=== PATIENT | female | born 1940 | race Caucasian/White ===

== ENCOUNTER 2018-02-06 19:46 | Emergency (ER) | payer MEDICARE ==
[2018-02-06 20:08] VITALS: BP 166/88
[2018-02-06] MEDS ORDERED: Acetaminophen TAB* 325 MG PO ONE (20:30)
--- NOTE | 2018-02-06 20:46 | UC ---
Isabel Duque Jacob, scribed for Renetta Ruiz MD on 02/06/18 at 2035 . General HPI - HPI Summary HPI Summary: Pt is a 77 y/o F w/ c/o pain and swelling on the right side of her face. Patient states she noticed first thing this morning when she was eating breakfast some pain with chewing. Patient states at work she develops right shoulder pain that she attributes to how she was sitting. Patient took some Motrin with improvement. Patient states this evening she noted some rapidly progressing swelling of her right face. Patient states she has pain from her inferior aspect of her right ear radiating under her neck and across her lower jaw. Patient denies fevers or chills. She denies dental and gum pain (Pt has dentures). Patient denies intraoral swelling or pain. She denies difficulty swallowing at the moment, but chewing food is still painful. Pt took 400 mg ibuprofen at around 2 pm today, which provided temporary relief. Pt with a remote history of infected parotid gland. Patient's medications reviewed this visit. - History of Current Complaint Chief Complaint: AWAkin Stated Complaint: JAW PAIN,SWELLING Time Seen by Provider: 02/06/18 20:05 Hx Obtained From: Patient Onset/Duration: Lasting Hours - onset in the morning Current Severity: Mild Pain Intensity: 2 Pain Location at: right facial area Pain Radiates to: right jawline, right neck, right shoulder Aggravating: chewing Alleviating: ibuprofen provided temporary relief Associated Signs & Symptoms: Positive: Edema - right-sided facial area, Other - POSITIVE: difficulty chewing food NEGATIVE: difficulty swallowing, dental and gum pain - Allergy/Home Medications Allergies/Adverse Reactions: Allergies Allergy/AdvReac Type Severity Reaction Status Date / Time acetazolamide Allergy Unknown Verified 02/06/18 20:11 Reaction Details celecoxib [From Celebrex] Allergy GI Upset Verified 02/06/18 20:12 Penicillins Allergy Unknown Verified 02/06/18 20:11 Reaction Details acetaminophen [From Percocet] AdvReac Nausea And Verified 02/06/18 20:12 Vomiting nitrofurantoin AdvReac GI Upset Verified 02/06/18 20:12 [From Macrodantin] oxycodone [From Percocet] AdvReac Nausea And Verified 02/06/18 20:12 Vomiting Home Medications: Home Medications Fluticasone NASAL SPRAY 50MCG* [Flonase NASAL SPRAY 50MCG*] 1 spray BOTH NARES DAILY 02/06/18 [History Confirmed 02/06/18] Ibuprofen TAB* [Motrin TAB* 400 MG] 400 mg PO Q6H PRN 02/06/18 [History Confirmed 02/06/18] Levothyroxine TAB* [Synthroid TAB*] 112 mcg PO DAILY 02/06/18 [History Confirmed 02/06/18] Omeprazole CAP* [Prilosec CAP* 20 MG] 20 mg PO EVERY OTHER DAY 02/06/18 [ History Confirmed 02/06/18] PMH/Surg Hx/FS Hx/Imm Hx Previously Healthy: Yes Respiratory History: Bronchitis Other GI/ History: UTI - Surgical History Surgical History: Yes Surgery Procedure, Year, and Place: hysterectomy - 1973. appendectomy - 1998. BLADDER suspension surgery - 2007. R carpal tunnel - Family History Known Family History: Positive: None - Social History Occupation: Employed Full-time Lives: With Family Alcohol Use: None Substance Use Type: None Smoking Status (MU): Never Smoked Tobacco Have You Smoked in the Last Year: No Review of Systems Constitutional: Negative Skin: Other - right facial swelling All Other Systems Reviewed And Are Negative: Yes Physical Exam - Summary Physical Exam Summary: Vital Signs Reviewed: Yes A+Ox3, no distress Eyes: Conjunctiva Clear, MATTHEW. EOM intact and full ENT: Hearing grossly normal TM x 2 clear, no mastoid pain. Pt with edema right inferior lateral aspect of zygomatic arch extending t right angle of jaw. No fluctuance, no warmth. Pt without tenderness of mastoid,but report pain inferior aspect of ear. Pt also with fullness of submental area. No fluctuance. No TMJ pain. no intraoral fullness of the base of mouth or buccal membrae. Mmmoist, uvula midline, no exudate, no erythema Neck: Supple Respiratory: Positive: No respiratory distress, No accessory muscle use + CTA throughout no w/r Cardiovascular: RRR nl s1, s2 no m/r CBT <2 sec abd soft + BS nt/nd no guarding, no distension Musculoskeletal Exam: GUSTAFSON x 4 without difficulty Strength Intact, ROM Intact Neurological: Positive: Alert, + sensation throughout Psychological: Positive: Normal Response To Family Skin: Positive: no rash, no ecchymosis Triage Information Reviewed: Yes Vital Signs: Initial Vital Signs Temp 99.1 F 02/06/18 20:01 Pulse 82 02/06/18 20:01 Resp 18 02/06/18 20:01 BP 166/88 02/06/18 20:01 Pulse Ox 97 02/06/18 20:01 Course/Dx - Course Course Of Treatment: Patient with development of right facial swelling and discomfort since this morning. On exam patient with fullness on the right side of her face extending to her right submental area and towards her right ear. Most likely differential is parotic gland inflammation or obstruction. Given the rapid progression and discomfort patient is an recommendation to the emergency room for further evaluation and treatment. Will give patient Tylenol here and she has some discomfort following exam. Spoke to JOEL Demarco in the emergency department, where patient coming by private car. Patient's and will drive her. Patient comfortable and full in full agreement with plan. Patient recommendation the ED. - Differential Dx - Multi-Symptom Provider Diagnoses: right sided facial swelling Discharge - Sign-Out/Discharge Documenting (check all that apply): Discharge/Admit/Transfer - Discharge Plan Condition: Stable Disposition: HOME Referrals: Livier Duffy MD [Primary Care Provider] - Additional Instructions: The doctor that evaluated you today thinks your symptoms are likely related to swelling of your parotid duct. However, because your sx have progressed so quickly it is recommended you go to the emergency department for further evaluation. This may include CT imaging and lab work, but will at the discretion of the provider who evaluates you in the emergency department - Billing Disposition and Condition Condition: STABLE Disposition: Home The documentation as recorded by the Isabel cristina Jacob accurately reflects the service I personally performed and the decisions made by , Renetta Ruiz MD.
== END 2018-02-06 20:35 | disposition home or self-care (01) ==
LOC: UCEAST 19:46
DX: R22.0 Localized swelling, mass and lump, head (principal); R51 Headache; Z88.8 Allergy status to other drugs, medicaments and biological substances; Z88.6 Allergy status to analgesic agent; Z88.0 Allergy status to penicillin; Z88.1 Allergy status to other antibiotic agents; Z88.5 Allergy status to narcotic agent
CPT/HCPCS: 99212; A9270-GY; G0463

== ENCOUNTER 2018-02-06 21:05 | Emergency (ER) | payer MEDICARE ==
[2018-02-06 22:25] LABS: ABS Basophils 0.1 10^3/ul (0-0.2); ABS Eosinophils 0.3 10^3/ul (0-0.6); ABS Lymphocytes 1.8 10^3/ul (1.0-4.8); ABS Monocytes 0.6 10^3/ul (0-0.8); ABS Neutrophils 6.2 10^3/ul (1.5-7.7); ABS Nucleated RBC 0 10^3/ul; Eosinophil % 3.6 % (0-6); Hematocrit 39 % (35-47); Lymphocyte % 20.5 % (25-47); Mean Corpuscular HGB Conc 34 g/dl (31-36); Mean Corpuscular Hemoglobin 31 pg (27-31); Mean Corpuscular Volume 93 fL (80-97); Mean Platelet Volume 7.8 um3 (7.4-10.4); Nucleated Red Blood Cells % 0; Platelet Count 250 10^3/ul (150-450); Red Blood Count 4.18 10^6/ul (4.00-5.40); Red Cell Distribution Width 14 % (10.5-15)
--- NOTE | 2018-02-06 22:33 | ED ---
Throat Pain/Nasal Congestion - HPI Summary HPI Summary: Complains of DOUGLAS, right-sided facial swelling, right-sided neck pain, pain with movement of jaw, pain behind and below right ear, right shoulder pain starting this a.m. denies fever, CP, SOB, ear pain, N/V/D, abdomen pain, change in urinary BM. Medical history is hypothyroid, asthma. - History of Current Complaint Chief Complaint: EDGeneral Time Seen by Provider: 02/06/18 21:51 Hx Obtained From: Patient Onset/Duration: Gradual Onset Severity: Moderate Associated Signs And Symptoms: Positive: Negative Cough: None - Allergies/Home Medications Allergies/Adverse Reactions: Allergies Allergy/AdvReac Type Severity Reaction Status Date / Time acetazolamide Allergy Unknown Verified 02/06/18 21:13 Reaction Details celecoxib [From Celebrex] Allergy GI Upset Verified 02/06/18 21:13 Penicillins Allergy Unknown Verified 02/06/18 21:13 Reaction Details nitrofurantoin AdvReac GI Upset Verified 02/06/18 21:13 [From Macrodantin] oxycodone [From Percocet] AdvReac Nausea And Verified 02/06/18 21:13 Vomiting Home Medications: Home Medications Levothyroxine TAB* [Synthroid TAB*] 100 mcg PO QAM 02/06/18 [History Confirmed 02/06/18] PMH/Surg Hx/FS Hx/Imm Hx Endocrine/Hematology History: Reports: Hx Diabetes, Hx Thyroid Disease Cardiovascular History: Reports: Hx Hypertension Respiratory History: Reports: Hx Asthma Denies: Hx Chronic Obstructive Pulmonary Disease (COPD) GI History: Reports: Hx Gastroesophageal Reflux Disease, Hx Irritable Bowel - MANY YEARS AGO Denies: Hx Ulcer Musculoskeletal History: Reports: Hx Arthritis Sensory History: Reports: Hx Cataracts, Hx Contacts or Glasses Denies: Hx Hearing Aid Opthamlomology History: Reports: Hx Cataracts, Hx Contacts or Glasses Neurological History: Reports: Hx Migraine - IN THE PAST - Cancer History Cancer Type, Location and Year: SKIN CA - Surgical History Surgery Procedure, Year, and Place: hysterectomy - 1973. appendectomy - 1998. BLADDER suspension surgery - 2007. R carpal tunnel Hx Anesthesia Reactions: No Infectious Disease History: No Infectious Disease History: Reports: Hx Shingles Denies: Hx Hepatitis, Hx Human Immunodeficiency Virus (HIV), Traveled Outside the [place] in Last 30 Days - Family History Known Family History: Positive: None - Social History Alcohol Use: None Substance Use Type: Reports: None Smoking Status (MU): Never Smoked Tobacco Have You Smoked in the Last Year: No Review of Systems Constitutional: Negative Eyes: Negative ENT: Negative Cardiovascular: Negative Respiratory: Negative Gastrointestinal: Negative Genitourinary: Negative Musculoskeletal: Negative Skin: Negative Neurological: Negative Psychological: Normal All Other Systems Reviewed And Are Negative: Yes Physical Exam - Summary Physical Exam Summary: Right side facial swelling posterior and inferior to TMJ. Tenderness behind right side ear, with no apparent redness to mastoid. Right ear exam normal. Oropharynx exam normal. Full range of motion of jaw with pain. Triage Information Reviewed: Yes Vital Signs On Initial Exam: Initial Vitals Temp Pulse Resp BP Pulse Ox 98.7 F 84 18 197/88 97 02/06/18 21:05 02/06/18 21:05 02/06/18 21:05 02/06/18 21:05 02/06/18 21:05 Vital Signs Reviewed: Yes Appearance: Positive: Well-Appearing Skin: Positive: Warm Head/Face: Positive: Normal Head/Face Inspection ENT: Positive: Normal ENT inspection Neck: Positive: Supple, Tenderness @ Respiratory/Lung Sounds: Positive: Clear to Auscultation Cardiovascular: Positive: Normal Abdomen Description: Positive: Nontender Musculoskeletal: Positive: Normal Neurological: Positive: Normal Psychiatric: Positive: Normal AVPU Assessment: Alert - Henrry Coma Scale Best Eye Response: 4 - Spontaneous Best Motor Response: 6 - Obeys Commands Best Verbal Response: 5 - Oriented Coma Scale Total: 15 Diagnostics - Vital Signs Vital Signs Temp Pulse Resp BP Pulse Ox 02/06/18 22:01 161/81 02/06/18 21:05 98.7 F 84 18 197/88 97 - Laboratory Lab Results: Lab Results 02/06/18 Range/Units 22:12 WBC 9.0 (3.5-10.8) 10^3/ul RBC 4.18 (4.00-5.40) 10^6/ul Hgb 13.0 (12.0-16.0) g/dl Hct 39 (35-47) % MCV 93 (80-97) fL MCH 31 (27-31) pg MCHC 34 (31-36) g/dl RDW 14 (10.5-15) % Plt Count 250 (150-450) 10^3/ul MPV 7.8 (7.4-10.4) um3 Neut % (Auto) 68.5 (38-83) % Lymph % (Auto) 20.5 L (25-47) % Clinch % (Auto) 6.7 (0-7) % Eos % (Auto) 3.6 (0-6) % Baso % (Auto) 0.7 (0-2) % Absolute Neuts (auto) 6.2 (1.5-7.7) 10^3/ul Absolute Lymphs (auto) 1.8 (1.0-4.8) 10^3/ul Absolute Monos (auto) 0.6 (0-0.8) 10^3/ul Absolute Eos (auto) 0.3 (0-0.6) 10^3/ul Absolute Basos (auto) 0.1 (0-0.2) 10^3/ul Absolute Nucleated RBC 0 10^3/ul Nucleated RBC % 0 Result Diagrams: 02/06/18 22:12 02/06/18 22:12 Lab Statement: Any lab studies that have been ordered have been reviewed, and results considered in the medical decision making process. EENT Course/Dx - Course Course Of Treatment: Complains of DOUGLAS, right-sided facial swelling, right-sided neck pain, pain with movement of jaw, pain behind and below right ear, right shoulder pain starting this a.m. denies fever, CP, SOB, ear pain, N/V/D, abdomen pain, change in urinary BM. Medical history is hypothyroid, asthma. Vital signs within normal limits. Labs unremarkable. CT positive only for right-sided parotid inflammation. Rx for clindamycin 300 mg 3 times a day by mouth 7 days. Follow-up with primary care. Right side facial swelling posterior and inferior to TMJ. Tenderness behind right side ear, with no apparent redness to mastoid. Right ear exam normal. Oropharynx exam normal. Full range of motion of jaw with pain. - Diagnoses Provider Diagnoses: Parotitis, acute Discharge - Sign-Out/Discharge Documenting (check all that apply): Discharge/Admit/Transfer - Discharge Plan Condition: Stable Disposition: HOME Prescriptions: Clindamycin Cap(NF) [Clindamycin Cap 300 mg Cap(NF)] 300 mg PO TID 7 Days #21 cap Patient Education Materials: Neck Pain (ED) Referrals: Livier Duffy MD [Primary Care Provider] - Additional Instructions: Take antibiotics as directed. Follow-up with primary care. Return to the ED for any new or worsening symptoms - Billing Disposition and Condition Condition: STABLE Disposition: Home
[2018-02-06 22:43] LABS: EGFR Non-African American 91.4 (>60)
[2018-02-06] MEDS ORDERED: Iodixanol* (CONTRAST) 320 MG/ML 100 ML SDV IV ONE (23:10)
[2018-02-07] MEDS ORDERED: Clindamycin CAP* 150 MG PO ONE (01:32)
[2018-02-07 01:40] VITALS: BP 144/73
--- NOTE | 2018-02-07 06:57 | RAD ---
INDICATION: Facial swelling COMPARISON: None TECHNIQUE: Axial source images were acquired following the intravenous administration of 50 mL Omnipaque 300 Coronal and sagittal reconstructed images were acquired. FINDINGS: Brain and skull base: There are no CT abnormalities of the visualized brain or skull base. The mastoid air cells are well aerated. Salivary glands: There is mild prominence of the right parotid gland and there is mild infiltration of the adjacent fat suggesting inflammatory response. There is no evidence of a mass or sialolithiasis. The major salivary glands otherwise appear normal. Paranasal sinuses: There is an air-fluid level in the sphenoid sinus The paranasal sinuses are otherwise clear. Nasopharynx: The nasopharynx and nasal cavity appear normal. Oropharynx: The oral, and oropharynx appear normal. Larynx: There are no laryngeal abnormalities. Thyroid: The thyroid appears normal. Lymph nodes: There is no lymphadenopathy by size criteria. Trachea/esophagus: There are no abnormalities of the trachea or visualized esophagus. The visualized lung apices are clear.. Vessels:The vessels appear normal. Bones and soft tissues:The remaining soft tissue elements of the neck are normal. There are no acute bony findings. Other: None IMPRESSION: INFLAMMATORY CHANGES ADJACENT TO THE RIGHT PAROTID GLAND. SPHENOID SINUSITIS
== END 2018-02-07 01:48 | disposition home or self-care (01) ==
LOC: ED 21:05
DX: K11.21 Acute sialoadenitis (principal); E03.9 Hypothyroidism, unspecified; Z86.2 Personal history of diseases of the blood and blood-forming organs and certain disorders involving the immune mechanism; Z79.899 Other long term (current) drug therapy; Z88.0 Allergy status to penicillin; Z88.8 Allergy status to other drugs, medicaments and biological substances; Z88.5 Allergy status to narcotic agent
CPT/HCPCS: 36415; 70491; 80053; 83605; 85025; 86140; 99283; A9270-GY; Q9967

== ENCOUNTER 2018-02-08 16:45 | Emergency (ER) | payer MEDICARE ==
[2018-02-08] MEDS ORDERED: metroNIDAZOLE IV 500 MG/100ML* 500 MG/100 ML BAG IVPB ONE (17:52)
[2018-02-08] MEDS ORDERED: Vancomycin(*) 1,500 MG in NS 0.9% 250 ML* 250 ML IVPB ONE (17:52)
[2018-02-08 18:14] LABS: ABS Basophils 0.1 10^3/ul (0-0.2); ABS Eosinophils 0.2 10^3/ul (0-0.6); ABS Lymphocytes 1.2 10^3/ul (1.0-4.8); ABS Monocytes 0.7 10^3/ul (0-0.8); ABS Neutrophils 7.1 10^3/ul (1.5-7.7); ABS Nucleated RBC 0 10^3/ul; Eosinophil % 2.3 % (0-6); Hematocrit 40 % (35-47); Hemoglobin 13.1 g/dl (12.0-16.0); Lymphocyte % 12.6 % (25-47); Mean Corpuscular HGB Conc 33 g/dl (31-36); Mean Corpuscular Hemoglobin 31 pg (27-31); Mean Corpuscular Volume 94 fL (80-97); Mean Platelet Volume 8.3 um3 (7.4-10.4); Nucleated Red Blood Cells % 0.1; Platelet Count 263 10^3/ul (150-450); Red Blood Count 4.22 10^6/ul (4.00-5.40); Red Cell Distribution Width 14 % (10.5-15); White Blood Count 9.2 10^3/ul (3.5-10.8)
[2018-02-08 18:30] LABS: EGFR Non-African American 88.2 (>60); INR 0.91 (0.77-1.02)
--- NOTE | 2018-02-08 19:06 | ED ---
Osmel Duque Tariq, scribed for John Townsend MD on 02/08/18 at 1759 . Allergic Reaction/Systemic - HPI Summary HPI Summary: A 77 y/o female presents to ED c/o swelling on right check. Additionally, right- side of her face hurts. According to pt, on Monday (2 days ago) she was diagnosed with acute bronchitis and was prescribed Clindamycin. Yesterday, she saw no change, however today she woke up with a swollen right cheek. Additionally, a [place] of redness was present on her chest. The redness on her chest has been spreading, moving lower towards belly button. Originally, this all started with her jaw hurting and her right side of face being swollen when she went to . Pt denies any urinary issues. She also denies any teeth issues ( dentures), and nothing in her mouth hurts. Pt also denies fever and sweats, however she has chills. Allergic to Penicillin. - History of Current Complaint Chief Complaint: EDGeneral Time Seen by Provider: 02/08/18 17:40 Hx Obtained From: Patient Onset/Duration: Sudden Onset, Started days ago - 1 day ago Timing: Constant Severity Initially: Mild Severity Currently: Mild Pain Intensity: 3 Pain Scale Used: 0-10 Numeric Character: Swelling, Pain Aggravating Factor(s): Nothing Alleviating Factor(s): Nothing Associated Signs And Symptoms: Positive: Negative - Allergies/Home Medications Allergies/Adverse Reactions: Allergies Allergy/AdvReac Type Severity Reaction Status Date / Time acetazolamide Allergy Unknown Verified 02/08/18 16:57 Reaction Details celecoxib [From Celebrex] Allergy GI Upset Verified 02/08/18 16:57 Penicillins Allergy Unknown Verified 02/08/18 16:57 Reaction Details nitrofurantoin AdvReac GI Upset Verified 02/08/18 16:57 [From Macrodantin] oxycodone [From Percocet] AdvReac Nausea And Verified 02/08/18 16:57 Vomiting PMH/Surg Hx/FS Hx/Imm Hx Endocrine/Hematology History: Reports: Hx Diabetes, Hx Thyroid Disease Cardiovascular History: Reports: Hx Hypertension Respiratory History: Reports: Hx Asthma Denies: Hx Chronic Obstructive Pulmonary Disease (COPD) GI History: Reports: Hx Gastroesophageal Reflux Disease, Hx Irritable Bowel - MANY YEARS AGO Denies: Hx Ulcer History: Denies: Hx Renal Disease Musculoskeletal History: Reports: Hx Arthritis Sensory History: Reports: Hx Cataracts, Hx Contacts or Glasses Denies: Hx Hearing Aid Opthamlomology History: Reports: Hx Cataracts, Hx Contacts or Glasses Neurological History: Reports: Hx Migraine - IN THE PAST - Cancer History Cancer Type, Location and Year: SKIN CA - Surgical History Surgery Procedure, Year, and Place: hysterectomy - 1973. appendectomy - 1998. BLADDER suspension surgery - 2007. R carpal tunnel Hx Anesthesia Reactions: No Infectious Disease History: No Infectious Disease History: Reports: Hx Shingles Denies: Hx Hepatitis, Hx Human Immunodeficiency Virus (HIV), Traveled Outside the [place] in Last 30 Days - Family History Known Family History: Positive: Hypertension, Other - Heart issues, breast cancer, melanoma - Social History Alcohol Use: None Substance Use Type: Reports: None Smoking Status (MU): Never Smoked Tobacco Have You Smoked in the Last Year: No Review of Systems Positive: Chills. Negative: Fever Negative: Erythema Negative: Sore Throat Negative: Chest Pain Negative: Shortness Of Breath, Cough Negative: Abdominal Pain, Vomiting, Nausea Negative: dysuria, hematuria Negative: Myalgia, Edema Positive: Other - POSITIVE: Swelling and redness on right cheek, redness on chest.. Negative: Rash Neurological: Other - NEGATIVE: Dizziness All Other Systems Reviewed And Are Negative: Yes Physical Exam - Summary Physical Exam Summary: Constitutional: Well-developed, Well-nourished, Alert. (-) Distressed Skin: Warm, Dry. Has erythema from angle of her jaw down her middle anterior neck within duration. HENT: Normocephalic; Atraumatic. Oral intro is normal. Eyes: Conjunctiva normal Neck: Musculoskeletal ROM normal neck. (-) JVD, (-) Stridor, (-) Tracheal deviation Cardio: Rhythm regular, rate normal, Heart sounds normal; Intact distal pulses; The pedal pulses are 2+ and symmetric. Radial pulses are 2+ and symmetric. (-) Murmur Pulmonary/Chest wall: Effort normal. (-) Respiratory distress, (-) Wheezes, (-) Rales Abd: Soft, (-), epigastric tenderness, (-) Distension, (-) Guarding, (-) Rebound Musculoskeletal: Mild Trismus. Lymph: (-) Cervical adenopathy Neuro: Alert, Oriented x3 Psych: Mood and affect Normal Triage Information Reviewed: Yes Vital Signs On Initial Exam: Initial Vitals Temp Pulse Resp BP Pulse Ox 98.8 F 90 18 179/78 98 02/08/18 16:50 02/08/18 16:50 02/08/18 16:50 02/08/18 16:50 02/08/18 16:50 Vital Signs Reviewed: Yes Diagnostics - Vital Signs Vital Signs Temp Pulse Resp BP Pulse Ox 02/08/18 16:50 98.8 F 90 18 179/78 98 - Laboratory Result Diagrams: 02/08/18 18:01 02/08/18 18:01 Lab Statement: Any lab studies that have been ordered have been reviewed, and results considered in the medical decision making process. Allergic Reaction Course/Dx - Diagnoses Provider Diagnoses: Suppurative parotitis - Provider Notifications Discussed Care Of Patient With: Lorraine Valente Instructed by Provider To: Other - Accepts patient to [facility]. - Critical Care Time Critical Care Time: 30-74 min - 35 minutes Discharge - Sign-Out/Discharge Documenting (check all that apply): Discharge/Admit/Transfer - TRANSFER - Discharge Plan Condition: Stable Disposition: TRANS HIGHER LVL OF CARE FAC Referrals: Livier Duffy MD [Primary Care Provider] - Additional Instructions: RETURN TO THE EMERGENCY DEPARTMENT FOR CHANGING OR WORSENING SYMPTOMS The documentation as recorded by the Osmel cristina Tariq accurately reflects the service I personally performed and the decisions made by , John Townsend MD.
[2018-02-08] MEDS ORDERED: diPHENhydraMINE IV* 50 MG/ML 1 ml VIAL (BENADRYL) IV ONE (19:46)
[2018-02-08] MEDS ORDERED: diPHENhydraMINE IV* 50 MG/ML 1 ml VIAL (BENADRYL) ONE (19:47)
[2018-02-08 20:51] VITALS: BP 169/80
== END 2018-02-08 20:49 | disposition short-term general hospital (02) ==
LOC: ED 16:45
DX: K11.20 Sialoadenitis, unspecified (principal); E11.9 Type 2 diabetes mellitus without complications; I10 Essential (primary) hypertension; J45.909 Unspecified asthma, uncomplicated; E07.9 Disorder of thyroid, unspecified; C80.1 Malignant (primary) neoplasm, unspecified; C79.2 Secondary malignant neoplasm of skin; Z88.0 Allergy status to penicillin
CPT/HCPCS: 36415; 80053; 82150; 83605; 84484; 85025; 85610; 85652; 85730; 87040; 96374; 96375; 99284; J1200; J3370; J3490

== ENCOUNTER 2018-12-18 13:55 | Observation (INO) | payer MEDICARE ==
--- NOTE | 2018-12-18 14:18 | ED ---
Neurological HPI - HPI Summary HPI Summary: Patient is a 78 y/o F presenting to ED via EMS with complaints of left sided facial and arm numbness along with visual changes. Sx onset at around 1215 today , patient states that numbness at the left side of her face/mouth onset first and then spread to her left arm. Ten minutes after her Sx of numbness onset, she began to experience visual changes. She states that she lost her peripheral vision and began to see flashing lights. Sx lasted around 30 minutes and spontaneously resolved. No facial droop, unsteady gait, weakness was noted during the episode. Patient notes Hx of migraines but states that she has not experienced one in around thirty years. She does note that she had felt an aura during the episode and states that the visual changes are similar to what she would typically experience with her migraines. However, she notes that she would not experience any numbness with her migraines. Patient endorses a dull DOUGLAS at present and reports being light-headed/dizzy during the episode. Patient is currently taking Cipro for UTI/possible diverticulitis. Cipro was started three days ago. She does note that she took Cipro years ago and had experienced numbness at her right arm when she was doing so. PMHx of diabetes, thyroid disease, HTN, asthma, GERD, irritable bowel syndrome, arthritis, migraine, skin cancer, shingles. PSHx of hysterectomy, appendectomy, bladder suspension surgery , right carpal tunnel surgery. FMHx of HTN, cardiac disease. She is a former smoker, denies alcohol usage and substance usage. On triage, pain is denied, nothing is noted to aggravate/alleviate Sx. Home medications and allergies are reviewed. - History of Current Complaint Chief Complaint: EDNeurologicalDeficit Stated Complaint: FACIAL NUMBNESS/TINGLING PER EMS Time Seen by Provider: 12/18/18 14:07 Hx Obtained From: Patient Onset/Duration: Sudden Onset, Started hours ago - onset 1215 today, Resolved Timing: Intermittent Episodes Lasting: - Sx lasted 30 minutes Current Severity: Mild - dull DOUGLAS noted in room Neurological Deficit Location: Facial - left sided, LUE Pain Intensity: 3 Pain Scale Used: 0-10 Numeric Character: Lightheaded, Dizzy, Numbness/Tingling - left face, LUE, Visual Changes - loss of peripheral vision, flashing lights, Other: - NEGATIVE - WEAKNESS, UNSTEADY GAIT, FACIAL DROOP Aggravating: Nothing Alleviating: Nothing Associated Signs and Symptoms: Positive: Visual Changes, Headache, Dizziness - light headed, Numbness - left face, LUE - Allergy/Home Medications Allergies/Adverse Reactions: Allergies Allergy/AdvReac Type Severity Reaction Status Date / Time acetazolamide Allergy Unknown Verified 12/18/18 14:08 Reaction Details celecoxib [From Celebrex] Allergy GI Upset Verified 12/18/18 14:08 Penicillins Allergy Unknown Verified 12/18/18 14:08 Reaction Details vancomycin Allergy Rash Verified 12/18/18 14:08 nitrofurantoin AdvReac GI Upset Verified 12/18/18 14:08 [From Macrodantin] oxycodone [From Percocet] AdvReac Nausea And Verified 12/18/18 14:08 Vomiting Home Medications: Home Medications ALPRAZolam TAB* [Xanax TAB*] 0.25 mg PO BEDTIME PRN 12/18/18 [History Confirmed 12/18/18] Cholecalciferol TAB* [Vitamin D TAB*] 2,000 units PO DAILY 12/18/18 [History Confirmed 12/18/18] Ciprofloxacin TAB* [Cipro 500 MG TAB*] 500 mg PO BID 12/18/18 [History Confirmed 12/18/18] Esomeprazole(NF) [NEXium(NF)] 20 mg PO DAILY 12/18/18 [History Confirmed ] Lisinopril TAB* [Prinivil TAB*] 10 mg PO DAILY 12/18/18 [History Confirmed 12/18] Multivitamins/Minerals TAB* [Theragran/minerals TAB*] 1 tab PO DAILY 12/18/18 [ History Confirmed 12/18/18] PMH/Surg Hx/FS Hx/Imm Hx Endocrine/Hematology History: Reports: Hx Diabetes, Hx Thyroid Disease Cardiovascular History: Reports: Hx Hypertension Respiratory History: Reports: Hx Asthma Denies: Hx Chronic Obstructive Pulmonary Disease (COPD) GI History: Reports: Hx Gastroesophageal Reflux Disease, Hx Irritable Bowel - MANY YEARS AGO Denies: Hx Ulcer History: Denies: Hx Renal Disease Musculoskeletal History: Reports: Hx Arthritis Sensory History: Reports: Hx Cataracts, Hx Contacts or Glasses Denies: Hx Hearing Aid Opthamlomology History: Reports: Hx Cataracts, Hx Contacts or Glasses Neurological History: Reports: Hx Migraine - IN THE PAST - Cancer History Cancer Type, Location and Year: SKIN CA - Surgical History Surgery Procedure, Year, and Place: hysterectomy - 1973. appendectomy - 1998. BLADDER suspension surgery - 2007. R carpal tunnel 2017 Hx Anesthesia Reactions: No Infectious Disease History: No Infectious Disease History: Reports: Hx Shingles Denies: Hx Hepatitis, Hx Human Immunodeficiency Virus (HIV), Traveled Outside the [place] in Last 30 Days - Family History Known Family History: Positive: Cardiac Disease, Hypertension, Other - Heart issues, breast cancer, melanoma - Social History Alcohol Use: None Substance Use Type: Reports: None Smoking Status (MU): Former Smoker Have You Smoked in the Last Year: No Review of Systems Eyes: Other - POSITIVE - LOSS OF PERPHERAL VISION, SEEING FLASHING LIGHTS Neurological: Other - NEGATIVE - FACIAL DROOP, UNSTEADY GAIT, WEAKNESS; POSITIVE - DIZZINESS/LIGHT-HEADED Positive: Headache, Numbness - LUE, left face . Negative: Weakness All Other Systems Reviewed And Are Negative: Yes Physical Exam - Summary Physical Exam Summary: Appearance: Well-appearing, Well-nourished, lying in bed comfortably Skin: Warm, dry, no obvious rash Eyes: sclera anicteric, no conjunctival pallor ENT: mucous membranes moist, pharynx appears normal Neck: Supple, nontender Respiratory: Clear to auscultation, no signs of respiratory distress Cardiovascular: Normal S1, S2. No murmurs. Normal distal pulses in tibial and radial bilaterally. Abdomen: Soft, nontender, normal active bowel sounds present Musculoskeletal: Normal, Strength/ROM Intact, Motor function in all 4 extremities is normal and symmetric. There is no rigidity or tremor noted. Neurological: A&Ox3, awake and alert, mentation is normal, speech is fluent and appropriate, Level of consciousness nml. The patient is alert and oriented. Cranial nerves are grossly intact. Gaze is conjugate and without nystagmus. Peripheral vision is intact to confrontation. There are no gross sensory abnormalities to light touch. There is no truncal or fine motor ataxia. Gait is normal. NIH 0, GCS 15. Psychiatric: affect is normal, does not appear anxious or depressed Triage Information Reviewed: Yes Vital Signs On Initial Exam: Initial Vitals Temp Pulse Resp BP Pulse Ox 97.7 F 95 22 215/90 98 12/18/18 14:01 12/18/18 14:01 12/18/18 14:01 12/18/18 14:01 12/18/18 14:01 Vital Signs Reviewed: Yes - Henrry Coma Scale Best Eye Response: 4 - Spontaneous Best Motor Response: 6 - Obeys Commands Best Verbal Response: 5 - Oriented Coma Scale Total: 15 Diagnostics - Vital Signs Vital Signs Temp Pulse Resp BP Pulse Ox 12/18/18 14:01 97.7 F 95 22 215/90 98 - Laboratory Result Diagrams: 12/18/18 14:28 12/18/18 14:28 Lab Statement: Any lab studies that have been ordered have been reviewed, and results considered in the medical decision making process. - CT BRAIN CT CT Interpretation Completed By: Radiologist Summary of CT Findings: BRAIN CT IMPRESSION: NO ACUTE INTRACRANIAL PATHOLOGY. THIS REPORT WAS REVIEWED BY DR. STILES. - EKG 1432 Cardiac Rate: NL - rate of 67 BPM EKG Rhythm: Sinus Rhythm Summary of EKG Findings: NSR at 67 BPM, P waves, QRS complex, and T waves are within normal limits, T waves and intervals are normal, no ischemic changes. This is a normal EKG. NIH Scale - NIH Scale Level of Consciousness: Alert/Keenly Responsive Ask Patient the Month and His/Her Age: Both Correct Ask Pt to Open/Close Eyes and Environmental Compliance Inspector/Release Non-Paretic Hand: Both Correctly Best Gaze (Only Horizontal Eye Movement): Normal Visual Field Testing: No Visual Loss Facial Paresis-Pt to Smile & Close Eyes or Grimace Symmetry: Normal/Symmetrical Motor Function - Right Arm: No Drift-Holds 10 Seconds Motor Function - Left Arm: No Drift-Holds 10 Seconds Motor Function - Right Leg: No Drift-Holds 10 Seconds Motor Function - Left Leg: No Drift-Holds 10 Seconds Limb Ataxia-Must be out of Proportion to Weakness Present: Absent Sensory (Use Pinprick to Test Arms/Legs/Trunk/Face): Normal Best Language (Describe Picture, Name Items): No Aphasia Dysarthria (Read Several Words): Normal Extinction and Inattention: No Abnormality Total Score: 0 Course/Dx - Course Course Of Treatment: Patient is a 78 y/o F presenting to ED via EMS with complaints of left sided facial and arm numbness along with visual changes. Sx onset at around 1215 today, patient states that numbness at the left side of her face/mouth onset first and then spread to her left arm. Ten minutes after her Sx of numbness onset, she began to experience visual changes. She states that she lost her peripheral vision and began to see flashing lights. Sx lasted around 30 minutes and spontaneously resolved. No facial droop, unsteady gait, weakness was noted during the episode. Patient notes Hx of migraines but states that she has not experienced one in around thirty years. She does note that she had felt an aura during the episode and states that the visual changes are similar to what she would typically experience with her migraines. However, she notes that she would not experience any numbness with her migraines. Patient endorses a dull DOUGLAS at present and reports being light-headed/dizzy during the episode. Patient is currently taking Cipro for UTI/possible diverticulitis. Cipro was started three days ago. She does note that she took Cipro years ago and had experienced numbness at her right arm when she was doing so. Physical exam is normal, NIH 0, GCS 15. NSR at 67 BPM, P waves, QRS complex, and T waves are within normal limits, T waves and intervals are normal, no ischemic changes. This is a normal EKG. BRAIN CT IMPRESSION: NO ACUTE INTRACRANIAL PATHOLOGY. Labs showed MCH 32, alk phos 124, lactic acid 1.1. UA showed 2+ blood, 2+ RBC, present squamous epith cells. During ED course, patient received fluids. Patient's case was discussed with Dr. Medrano. Dr. Medrano came and evaluated the patient, he recommends ASA 325 mg and admission for the patient for observation. Dr. Medrano states that he will discuss the patient's case with hospitalist services, Dr. Campbell, and have her admitted. - Diagnoses Provider Diagnoses: TIA (transient ischemic attack) - Physician Notifications Discussed Care Of Patient With: Chelo Medrano Time Discussed With Above Provider: 14:41 Instructed by Provider To: Other - Patient's case was discussed with Dr. Medrano, Dr. Medrano will come to evaluate the patient. 1520 - Dr. Medrano recommends ASA for the patient as well as admission for observation. Dr. Medrano states that he will discuss the patient's case with hospitalist services, Dr. Campbell, and have her admitted. Discharge - Sign-Out/Discharge Documenting (check all that apply): Patient Departure - admit Patient Received Moderate/Deep Sedation with Procedure: No - Discharge Plan Condition: Stable Disposition: ADMITTED TO [facility] - Billing Disposition and Condition Condition: STABLE Disposition: Admitted to [facility] - Attestation Statements Document Initiated by Santiago: Yes Documenting Scribe: ANA SARGENT Provider For Whom Santiago is Documenting (Include Credential): NATANAEL STILES MD Scribe Attestation: IANA, scribed for NATANAEL STILES MD on 12/18/18 at 2056. Scribe Documentation Reviewed: Yes Provider Attestation: The documentation as recorded by the ANA cristina accurately reflects the service I personally performed and the decisions made by me, NATANAEL STILES MD Status of Scribe Document: Viewed
[2018-12-18] MEDS ORDERED: NS 0.9% 1000 ML** 1,000 ML IV ONE (14:22)
[2018-12-18 14:42] LABS: ABS Eosinophils 0.2 10^3/ul (0-0.6); ABS Lymphocytes 1.5 10^3/ul (1.0-4.8); ABS Monocytes 0.5 10^3/ul (0-0.8); Hematocrit 41 % (35-47); Hemoglobin 13.9 g/dL (12.0-16.0); Lymphocyte % 23.9 %; Mean Corpuscular HGB Conc 34 g/dL (31-36); Mean Corpuscular Hemoglobin 32 pg (27-31); Mean Corpuscular Volume 94 fL (80-97); Mean Platelet Volume 8.2 fL (7.4-10.4); Nucleated Red Blood Cells % 0.1; Platelet Count 252 10^3/uL (150-450); Red Blood Count 4.41 10^6 /uL (3.70-4.87); Red Cell Distribution Width 13 % (10.5-15); White Blood Count 6.2 10^3/uL (3.5-10.8)
[2018-12-18 14:43] LABS: Mean Platelet Volume 8.3 fL (7.4-10.4); Platelet Count 258 10^3/uL (150-450)
[2018-12-18 14:45] LABS: Urine Appearance Clear; Urine Bacteria Absent (Absent); Urine Bilirubin Negative (Negative); Urine Blood 2+ (Negative); Urine Color Straw; Urine Glucose Negative (Negative); Urine Ketones Negative (Negative); Urine Nitrite Negative (Negative); Urine Protein Negative (Negative); Urine Red Blood Cell 2+(6-10/hpf) (Absent); Urine Specific Gravity 1.005 (1.010-1.030); Urine Squamous Epithelial Cell Present (Absent); Urine Urobilinogen Negative (Negative); Urine White Blood Cell Absent (Absent)
[2018-12-18 14:55] LABS: INR 0.98 (0.82-1.09)
[2018-12-18 15:06] LABS: Albumin 4.2 g/dL (3.2-5.2); Calcium 9.6 mg/dL (8.6-10.3); Potassium 3.9 mmol/L (3.5-5.0); Total Bilirubin 0.7 mg/dL (0.2-1.0)
[2018-12-18 15:12] LABS: Albumin/Globulin Ratio 1.5 (1-3); BUN/Creatinine Ratio 14.5 (8-20); C Reactive Protein 5.37 mg/L (<8.01); EGFR African American 112.4 (>60); EGFR Non-African American 92.9 (>60); Globulin 2.8 g/dL (2-4)
[2018-12-18] MEDS ORDERED: Aspirin TAB* 325 MG PO ONE (15:21)
[2018-12-18 16:12] LABS: Troponin I 0.01 ng/mL (<0.04)
[2018-12-18 16:33] LABS: TSH (Thyroid Stimulating Horm) 0.17 mcIU/mL (0.34-5.60)
[2018-12-18 16:42] LABS: Erythrocyte Sed Rate 15 mm/Hr (0-29)
--- NOTE | 2018-12-18 17:04 | CONS ---
NEUROLOGY CONSULTATION NOTE: DATE OF CONSULT: 12/18/18 CONSULTING PROVIDER: Dr. Henri Abarca. REASON FOR CONSULT: Tingling of the left side. CHIEF COMPLAINT: Transient left-sided tingling sensation. HISTORY OF PRESENT ILLNESS: Ms. 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 This started at 12:15 p.m. on 12/18/18. The patient was answering a telephone at work. Initially, she felt the tingling sensation around her mouth, then the left side of the face, and then into the left side of the arm. The transition was within 5 minutes involving the face and arm, lasting 30 minutes. A few minutes after the onset of the tingling sensation, she noticed flashing lights, which was bright in both eyes. That lasted for about 2 minutes. The sensation completely resolved, but the tingling sensation came back while she was transporting via EMS. She also complains of associated symptoms of a dull headache that is bifrontal, 3/10 in severity, that is not associated with any photo or phonophobia. She denied any nausea. She has not had a migraine headache for well over 15 years. The patient also complains of not feeling well for the last few weeks. She was recently started on ciprofloxacin for a possible UTI and diverticulitis. She had a similar reaction of tingling sensation and headaches on ciprofloxacin in the past. She started ciprofloxacin last Monday. In the ED, the patient's systolic blood pressure was as high as 210/90. The patient is aspirin naive. PAST MEDICAL HISTORY: Hypertension, hypothyroidism, skin cancer, recurrent UTI , and GERD. PAST SURGICAL HISTORY: Hysterectomy, appendectomy. ALLERGIES: ACETAZOLAMIDE, CELECOXIB, PENICILLIN, VANCOMYCIN. FAMILY HISTORY: There is no family history of seizures, but her mother may have suffered a lacunar infarct. SOCIAL HISTORY: She is still working as a registered nurse. She denied any tobacco or alcohol use. She lives with her . REVIEW OF SYSTEMS: A 14-point review of systems was obtained and otherwise negative except for what was mentioned in the HPI. PHYSICAL EXAM: Vitals: Temperature of 97.7, pulse of 76, respiratory rate of 22, oxygen saturation of 98%, blood pressure of 178/88. NIH Stroke Scale 0. General: Well-nourished, well-developed female, in no acute distress. Head: Normocephalic without obvious abnormality. Eyes: Conjunctivae/corneas are clear. Neck is supple and symmetrical. Lungs are clear to auscultation bilaterally. Cardiovascular: Regular rate and rhythm with normal S1, S2. Extremities: Normal range of motion with no cyanosis. Skin: No skin lesions or lacerations. Psych: Affect is broad and normal mood. Easy to establish rapport. Neurological Examination: Awake, alert, and oriented to person, place , time, and general circumstances. Speech and language including expression, naming, repetition, and comprehension were assessed and found to be normal. Cranial Nerves: Normal confrontation testing bilaterally. Pupils are mid range and reactive to light. Normal consensual response. Extraocular muscles are intact. There is no ptosis. Sensation is intact on the forehead, cheeks, and jaw region bilaterally. Subtle droop on the right side. Symmetrical palatal elevation. Normal strength against resistance. Tongue is symmetrical and midline with no atrophy or fasciculation. Motor Examination: No abnormal movements or pronator drift. Normal bulk and tone throughout. No fasciculation. Motor strength is 5/5 in the upper and lower extremities proximal and distal musculature areas. Reflexes: Right/left, brachioradialis 3 /3, biceps 3/3, triceps 3/3, patella 3/3, ankle 2/2, plantar flexor/flexor. Sensation is intact to light touch throughout. Coordination: Normal finger-to- nose and rapid alternating movements. Gait and station: Narrow based. No ataxia. DIAGNOSTIC STUDIES/LAB DATA: She had a WBC checked today that was 6.2, hemoglobin 13.9, hematocrit 41, platelet count of 258. ESR is pending. Sodium of 141, potassium 3.9, chloride of 106, carbon dioxide of 27, anion gap of 8, creatinine of 0.62, lactic acid of 1.1. Urinalysis negative for pyuria. C- reactive protein is 5.37. She had a CT of the head that I personally reviewed. There were no acute intracranial abnormalities. She had an electrocardiogram that showed normal sinus rhythm. 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 The patient's symptoms have resolved. The patient has had similar symptoms in the past with ciprofloxacin exposure. On examination, her NIH stroke scale is 0. She has no focal neurological deficits. However, concerning situation here is that her systolic blood pressure is in the 200s. Therefore, I recommend admission to the hospitalist for further evaluation. 1. Acute onset left-sided paresthesias associated with headache - I suspect this is most likely complicated migraines versus migraine aura in a patient with history of migraine headaches. However, given her elevated systolic blood pressure, ruling out a right thalamic infarct is reasonable. NIH Stroke Scale is 0. She would not be a candidate for IV tPA. She does not have deficits to be evaluated for mechanical thrombectomy. Please admit under the hospitalist service for observation. Ordered neuro checks every 4 hours. I also ordered an MRI of the brain, MRA of the head, and carotid ultrasound as a pre stroke screening. I ordered a 2D transthoracic echo. Lipid panel was ordered. Start aspirin 325 mg x1 today and aspirin 81 mg starting tomorrow. Other differential diagnosis including transient ischemic attack or sensory seizures. 2. Headaches - the pain is 3/10 in severity. She used to drink coffee and has not had any coffee, hence I think this is a withdrawal headache. Tension headache is a likely diagnosis. We can use acetaminophen 650 mg by mouth every 6 hours for the headaches. 3. Hypertensive emergency - given that she does not have any new neurological deficits, I recommend slowly decreasing her blood pressure by dropping the systolic blood pressure by 25% every 12 hours. Restart her home antihypertensive agents. I will continue to follow. I discussed these recommendations with Niya, the admitting nurse practitioner. I also discussed the recommendations with Dr. Abarca, who agreed with the plan. [id number]/[facility] #: [id number] EMILIA
--- NOTE | 2018-12-18 17:55 | ECHO ---
*[facility]* [place] [address] Fax #: [phone] Transthoracic Echocardiogram Patient: Mikael, Height: 63 in / 160 Frank Wolfe cm : 1940 Weight: 159.7 lb / Study Date: 12/18/2018 72.6 kg Age: 78 BP: 178 / 88 Gender: F BMI/BSA: 28.3 kg/m^2 HR: 71 bpm / 1.76 m^2 *Body Make Up Artist: * Amberly Lin RDCS RN *Referring Physician: * Chelo Medrano *Reading Physician: * Evan Eugene MD Indications: CVA. History: Risk factors: Hypertension. Diabetes mellitus. Thyroid disease. Conclusions Summary: 1. Left ventricle: Systolic function is normal. The estimated ejection fraction is 60-65%. There are no regional wall motion abnormalities. 2. Right ventricle: Systolic function is normal. 3. Atrial septum: Bubble study was negative 4. Mitral valve: There is mild regurgitation. 5. Aortic valve: There is no evidence of stenosis. There is trivial regurgitation. 6. Tricuspid valve: There is mild regurgitation. The PAP is estimated at 39mmHg. There is mild pulmonary hypertension. 7. Pericardium, extracardiac: There is no significant pericardial effusion. 8. Impressions: No previous study was available for comparison. Study data: Transthoracic echocardiogram. Procedure: Transthoracic echocardiography was performed. Image quality was fair. Agitated normal saline was administered IV for the bubble study. Complete 2D, spectral Doppler, and color flow Doppler. Patient status: Inpatient. Patient room number: ED 9. Rhythm: Normal sinus rhythm. Findings Left ventricle: The cavity size is normal. Wall thickness is mildly increased. There is a prominent septal knuckle measuring 1.5cm. Systolic function is normal. The estimated ejection fraction is 60-65%. There are no regional wall motion abnormalities. There is no consistent Doppler evidence of clinically significant diastolic dysfunction. Right ventricle: The cavity size is normal. Systolic function is normal. Left atrium: The atrium is normal in size. Right atrium: The atrium is normal in size. Atrial septum: Bubble study was negative Images 42 and 43. Mitral valve: The leaflets are mildly thickened. There is no evidence of stenosis. There is mild regurgitation. Aortic valve: The leaflets are mildly thickened. There is no evidence of stenosis. There is trivial regurgitation. The LVOT to aortic valve VTI ratio is 0.75. The ratio of LVOT to aortic valve peak velocity is 0.83. The ratio of LVOT to aortic valve mean velocity is 0.75. The mean systolic gradient is 3.0 mm Hg. The peak systolic gradient is 5.0 mm Hg. Tricuspid valve: The valve is structurally normal. There is no evidence of stenosis. There is mild regurgitation. The PAP is estimated at 39mmHg. There is mild pulmonary hypertension. Pulmonic valve: The valve is structurally normal. There is no evidence of stenosis. There is trivial regurgitation. The peak systolic gradient is 2.0 mm Hg. Aorta: Aortic root: The aortic root is not dilated. Ascending aorta: The ascending aorta is not dilated. Aortic arch: The aortic arch is not dilated. Pericardium: There is no significant pericardial effusion. Pulmonary arteries: The main pulmonary artery is normal-sized. Systemic veins: Not well visualized. Measurements Left ventricle Value Ref Aortic valve Value Ref STEPHAN, LAX 4.3 cm 3.8 - 5.2 Erum diam, ED 2.0 cm ----- ESD, LAX 2.6 cm 2.2 - 3.5 Peak v, S 1.14 m/sec ----- FS, LAX 40 % 27 - 45 Mean v, S 0.81 m/sec ----- PW, ED, LAX (H) 1.1 cm 0.6 - 0.9 VTI, S 29.2 cm ----- IVS/PW, ED, LAX 1.04 Mean grad, S 3.0 mm Hg ----- E', lat erum, TDI (L) 6.6 cm/sec >=10.0 Peak grad, S 5.0 mm Hg - ---- E/e', lat erum, 10 LVOT/AV, VTI ratio 0.75 ---- - TDI LVOT/AV, Vpeak ratio 0.83 ----- E', med erum, TDI (L) 5.5 cm/sec >=7.0 E/e', med erum, 12 Mitral valve Value Ref TDI Peak E 0.64 m/sec ----- E', avg, TDI 6.1 cm/sec Peak A 1.05 m/sec ---- - E/e', avg, TDI 11 <=14 Decel time 331 ms - ---- Peak E/A ratio 0.6 ----- LVOT Value Ref Peak jerry, S 0.95 m/sec Pulmonic valve Value Ref Mean jerry, S 0.61 m/sec Peak v, S 0.75 m/sec ----- VTI, S 21.8 cm Peak grad, S 2.0 mm Hg ----- Mean grad, S 2 mm Hg Tricuspid valve Value Ref Ventricular septum Value Ref TR peak v 2.8 m/sec <=2.8 IVS, ED, LAX (H) 1.2 cm 0.6 - 0.9 Peak RV-RA grad, S 31 mm Hg ----- Right ventricle Value Ref Aortic root Value Ref STEPHAN, LAX 2.8 cm Root diam 2.5 cm <4.0 STEPHAN minor ax, 2.7 cm 1.9 - 3.5 Root max diam, ED 2.5 cm <4.0 A4C mid Ascending aorta Value Ref Left atrium Value Ref AAo AP diam, S 3.1 cm ----- AP dim, ES 3.00 cm 2.70 - 3.80 Decending aorta Value Ref ML dim, A4C 4.6 cm Sujata peak jerry 0.56 m/sec ----- SI dim, A4C 4.8 cm Vol/bsa, ES, 1-p 25 ml/m^2 11 - 40 A4C Vol/bsa, ES, 1-p 21 ml/m^2 13 - 40 A2C Vol/bsa, ES, A/L 24 ml/m^2 16 - 34 Right atrium Value Ref ML dim, ES, A4C 4.2 cm 2.6 - 4.4 SI dim, ES, A4C 4.7 cm 3.4 - 5.3 Legend: (L) and (H) emily values outside specified reference range. Prepared and electronically signed by Evan Eugene MD 12/18/2018 17:55
[2018-12-18] MEDS ORDERED: Acetaminophen TAB* 325 MG PO PRN (18:24)
[2018-12-18] MEDS ORDERED: Fluticasone NASAL SPRAY 50MCG* 16 gm SPRAY BTL BOTH NARES PRN (18:30)
[2018-12-18] MEDS ORDERED: Enoxaparin(*) 40 MG/0.4 ML SYR SUBCUT SCH (19:30)
--- NOTE | 2018-12-18 22:00 | HP ---
CC: Dr. Livier Duffy * HISTORY AND PHYSICAL: DATE OF ADMISSION: 12/18/18 PROVIDER: Niya Kamara NP PRIMARY CARE PROVIDER: Dr. Livier Duffy. ATTENDING PHYSICIAN WHILE IN THE HOSPITAL: Dr. Fabi Berrios * (dictated by Niay Kamara NP). CHIEF COMPLAINT: Facial numbness, loss of peripheral vision, left arm tingling. HISTORY OF PRESENT ILLNESS: Ms. Youssef is a 78-year-old female with past medical history significant for migraines, hypertension, hypothyroid, and GERD, who presented to the emergency room with the complaints of numbness around her mouth, left arm tingling, loss of peripheral vision with flashes of bright light. This started approximately 1215 today. The patient reports that she has not been feeling well for the last week. She reports that she started not feeling well last Monday. On Monday, she was diagnosed with a UTI. She had left flank pain that radiated to her left groin. She started Cipro Monday night and took Cipro on Monday, Monday, Monday, and a dose this morning for a total of 3 days. The patient reports that she took Cipro last summer for an infection and while taking it, her right arm went numb, so she discontinued the medication. The patient reports that her symptoms of numbness and tingling in the left arm and numbness around her mouth lasted about 30 minutes and then all the symptoms resolved. The patient reports that she also saw bright lights and loss of peripheral vision. She reports she has a history of this with her migraines but has not had a migraine in over 15 years. At this time, all of her symptoms have resolved and she has a residual dull headache. Due to the concern of TIA, we were asked to see and evaluate the patient for admission. PAST MEDICAL HISTORY: 1. Migraines. 2. Hypertension. 3. Hypothyroidism. 4. GERD. PAST SURGICAL HISTORY: 1. Appendectomy. 2. Hysterectomy. 3. Carpal tunnel release. 4. Bilateral cataracts. 5. Tonsillectomy. MEDICATIONS: Home medications include: 1. Lisinopril 10 mg p.o. daily. 2. Levothyroxine 100 mcg p.o. daily. 3. Nexium 20 mg p.o. daily. 4. Multivitamin 1 tablet p.o. daily. 5. Vitamin D3 in the winter. ALLERGIES: PENICILLIN, VANCOMYCIN, CELEBREX, ACETAZOLAMIDE, MACRODANTIN, and OXYCODONE. FAMILY HISTORY: Father with a history of an SC. No reported history of diabetes. Mother with skin cancer. Son from malignant melanoma. Another son from esophageal cancer. Father had a history of bladder and prostate cancer. SOCIAL HISTORY: She denies any tobacco, alcohol, or illicit drug use. She is . She lives with her . Surrogate decision maker in the event she is unable to make her own decision is her . She is a full code. REVIEW OF SYSTEMS: The patient denies any fever or unintended weight loss. Denies any chest pain or edema, cough, hemoptysis or shortness of breath. She denies any nausea, vomiting, diarrhea. She does report mild left flank area pain. She denies any gross hematuria or dysuria. She denies any weakness. No focal weakness or sensory loss. Denies any current visual complaints. Denies any dysphagia, arthralgias, myalgias, rashes, lesions, or open sores. Denies any psychosis or anxiety. PHYSICAL EXAMINATION GENERAL: At this time, Ms. Youssef is a 78-year-old female. She is resting comfortably on the stretcher in the emergency room. She is no acute distress. VITAL SIGNS: Blood pressure 175/86, heart rate is 82, respirations 18, O2 saturation 99%, temperature is 97.0. HEENT: Head is atraumatic, normocephalic. Eyes: EOMs are intact. Sclerae anicteric and not pale. Oral mucosa appeared to be moist. NECK: Supple. LUNGS: Clear to auscultation bilaterally. No wheezes, rales, or rhonchi. CARDIAC: S1, S2. Regular rate and rhythm. No murmurs, rubs, or gallops. ABDOMEN: Soft and nontender. Bowel sounds are present x4. EXTREMITIES: She is able to move all 4 extremities with 5/5 strength. There is no clubbing or cyanosis. NEUROLOGIC: She is awake, alert, oriented x3. Speech is clear. Thought process intact. [id number] is intact. There is no pronator drift. There is no leg drift. Smile is equal. Tongue is midline. There is no facial asymmetry. SKIN: Intact. PSYCH: The patient is alert and oriented x3. She is calm and cooperative. DIAGNOSTIC STUDIES/LAB DATA: WBCs are 6.2, RBCs 4.41, hemoglobin 13.9, hematocrit 41, platelet count 252. INR is 0.98. Sodium 141, potassium 3.9, chloride 106, carbon dioxide 27, anion gap is 8, BUN was 9, creatinine 0.62, lactic acid 1.1, calcium 9.6. ASTs were 20, ALTs were 14, alkaline phosphatase 124. Troponin 0.01. C-reactive protein was 5.37. TSH was 0.17. Urine color was straw, clear, pH was 7.0, specific gravity was 1.005. Urine protein and ketones were negative. Blood was 2+. Nitrites, bilirubin, urobilinogen, leukocyte esterase, and wbc's were all negative. Urine rbc's were 2+. Squamous epithelial cells were present. Bacteria was absent and glucose was negative. She had a CT of the head, radiologist's impression: No acute intracranial pathology. She had an electrocardiogram, which showed sinus rhythm at a rate of 67. She had an MRI of the brain, radiologist's impression: No intracranial lesion is noted, no restriction or diffusion is noted. She had a carotid Doppler. No evidence of flow limiting stenosis, minimal plaque in the bifurcations. She had a transthoracic echocardiogram. Left ventricular function is normal. Estimated ejection fraction is 60% to 65%. There is no regional wall motion abnormalities. Right ventricular systolic function is normal. Atrial septal bubble study was negative. Mitral valve with mild regurgitation. There is no evidence of stenosis. There is trivial regurgitation of the aortic valve. Tricuspid valve, there is mild regurgitation. The PAP pressure is estimated at 39 mmHg. There is mild pulmonary hypertension. The pericardium, extracardiac. There is no significant pericardial effusion. She had an MRA of the head that is currently pending. ASSESSMENT AND PLAN: Ms. Youssef is a 78-year-old female who has a history of migraines, hypertension, hypothyroidism, and gastroesophageal reflux disease, who presented to the emergency room with complaints of facial numbness and left arm tingling. We were asked to see and evaluate her to rule out transient ischemic attack. She will be admitted under observation for: 1. Facial numbness, rule out transient ischemic attack. Within the differential diagnosis could be transient ischemic attack versus reaction to Cipro. The patient had similar reaction to Cipro in the past. I will discontinue Cipro and recommend that this be listed as an allergy. We will place the patient on telemetry. She will have neurochecks q.4 hours. She had an MRI/MRA of the brain. She had carotid Dopplers that were negative. She had transthoracic echocardiogram, had a negative bubble study, and an ejection fraction of 60% to 65%. She will be monitored on telemetry overnight for any arrhythmias and followed up with Dr. Medrano in the morning. Dr. Medrano did see the patient in the emergency room and made recommendations of her care. We will continue her on aspirin 81 mg p.o. daily. 2. Hypertension. The patient was hypertensive in the emergency room, initially with systolic blood pressure of 215/90. She had not taken her lisinopril today. I did give her lisinopril 10 mg in the emergency room. Her blood pressure is down to 175/86. We will continue to monitor blood pressure and adjust her medications as necessary. I will continue her lisinopril as previously prescribed. 3. Hypothyroidism. The patient's TSH is 0.17. I will decrease her dose of levothyroxine to 88 mcg p.o. daily. 4. Acid reflux. The patient will continue on PPI. 5. DVT prophylaxis. I will place the patient on Lovenox subcu q.24 hours. 6. Diet. She can have her regular diet. 7. Code status. She is a full code. TIME SPENT: Time spent on this admission was approximately 60 minutes, greater than half that time was spent at the bedside reviewing events leading thus far to her hospitalization, performing my physical exam, and reviewing my plan of care. I have discussed with my attending, Dr. Fabi Berrios, she is in agreement with my plan. NIYA KAMARA, CHIEF INNOVATION OFFICER [id number]/[facility] #: [id number] EMILIA
[2018-12-19] MEDS ORDERED: Levothyroxine TAB* 88 MCG TAB PO SCH (06:00)
[2018-12-19] MEDS ORDERED: Multivitamins/Minerals TAB PO SCH (09:00)
[2018-12-19] MEDS ORDERED: Cholecalciferol TAB* 1000 UNITS PO SCH (09:00)
[2018-12-19] MEDS ORDERED: Lisinopril TAB* 10 MG PO SCH (09:00)
[2018-12-19] MEDS ORDERED: Aspirin EC TAB* 81 MG TAB.EC PO SCH (09:00)
[2018-12-19] MEDS ORDERED: Lisinopril TAB* 10 MG PO ONE (10:48)
[2018-12-19 11:23] LABS: Free T4 1.18 ng/dL (0.61-1.12)
[2018-12-19 11:33] VITALS: BP 160/71
--- NOTE | 2018-12-19 13:09 | PN ---
Subjective Date of Service: 12/19/18 Length of Stay: 1 Days Neurology is following for headaches, hypertensive emergency, and visual disturbance. Interval History: She is not complaining of any deficits. Her vision disturbance and headaches resolved. She does not have any weakness or paresthesia. BP is under better control. She stopped taking Ciprofloxacin. Review of Systems: Denied CP, SOB, or palpitations. Objective Active Medications: Aspirin 81 mg daily Synthroid 88 mcg PO daily Lisinopril 10 mg PO daily Vital Signs 12/18/18 12/19/18 12/19/18 23:30 03:13 07:50 Temperature 97.5 F 97.5 F 97.9 F Pulse Rate 65 69 66 Respiratory 16 16 14 Rate Blood Pressure 160/73 143/72 148/74 (mmHg) O2 Sat by Pulse 98 98 98 Oximetry 12/19/18 12/19/18 08:00 11:32 Temperature Pulse Rate 73 Respiratory Rate Blood Pressure 160/71 (mmHg) O2 Sat by Pulse 98 Oximetry Intake and Output Last 24 Hours 12/17/18 12/18/18 12/19/18 12/20/18 06:59 06:59 06:59 06:59 Intake Total 1000 Balance 1000 Weight 165 lb Intake: IV Fluids 1000 Oral 0 Oxygen Devices in Use Now: None Neurology Exam: General: Well nourished, well developed, and in no acute distress Chest: Clear to auscultation bilaterally Cardiovascular: Regular rate and rhythm without murmurs, rubs, gallops Extremities: No clubbing, cyanosis, or edema Neurological Findings: Awake, alert, and oriented to person, place, and time. Speech: fluent without dysarthria, repetition intact Cranial Nerve: PERRL, EOM intact, VFF, no nystagmus, face symmetric bilaterally Motor: s/s throughout, proximal and distal extremities x4 tone/bulk normal Sensation: intact to LT/PP bilaterally upper and lower extremities Deep Tendon Reflex: 2+ symmetric in the upper/lower extremities, Babinski - down going Finger to nose, rapid alternating movements intact without tremor, no dysdiadochokinesia Gait: intact with good arm swing and stride Result Diagrams: 12/18/18 14:28 12/18/18 14:28 Additional Lab and Data: Reviewed laboratory and imaging data: ESR: 15 TSH: 0.17 Free T4: 1.18 Total T3: 112 Vitamin B12: 448 LDL: 89 MRI brain with and without contrast 12/18/2018: no intracranial lesion or area of restricted diffusion noted. MRA head without contrast: 12/18/2018: dominant left vertebral artery. No aneurysmal dilatation or branch occlusion is identified. Carotid ultrasound 12/18/2018: no evidence of flow-limiting stenosis. TTE 2D- EF 60-65%. Bubble study was negative. Assessment/Plan 1. Left sided paresthesia, headache, and scintillating scotomas- all symptoms consistent with a complicated migraine given her history. However, the presentation of hypertensive emergency and given her age and risk factors, we cannot entirely exclude a TIA to the right ICA. I recommend aspirin 81 mg daily. She prefers to lower her cholesterol with lifestyle modifications. 2. Hypertensive emergency- continue to increase lisinopril. Discussed with Mae and the dose will be increased to 20 mg daily. Encouraged her to check her BP regularly. 3. Hyperthyroidism- reduced the dose of Synthroid. Follow-up with me in 4 weeks. I will sign off. D/w Mae.
--- NOTE | 2018-12-19 16:08 | DS ---
CC: Dr. Livier Duffy; Dr. Chelo Medrano * DISCHARGE SUMMARY: DATE OF ADMISSION: 12/18/18 DATE OF DISCHARGE: 12/19/18 PRIMARY CARE PROVIDER: Dr. Livier Duffy. NEUROLOGIST: Dr. Chelo Medrano. ATTENDING PHYSICIAN: Dr. Sri Caraballo * (dictated by JOEL Ford). PRIMARY DIAGNOSES: 1. Hypertensive emergency. 2. Possible transient ischemic attack. 3. Adverse drug reaction - Cipro. SECONDARY DIAGNOSES: 1. Hypertension. 2. Hypothyroidism. 3. Migraines. 4. Gastroesophageal reflux disease. STUDIES WHILE IN THE HOSPITAL: Brain CT, 12/18/18, impression: No acute intracranial pathology. Electrocardiogram, 12/18/18, impression: Sinus rhythm, left axis deviation. Brain MRI, 12/18/18, impression: No intracranial lesion is noted. No restriction of diffusion is noted. Carotid Doppler study, 12/18/18, impression: No evidence of flow-limiting stenosis. Minimal plaque in the bifurcations. Head MRA, 12/18/18, impression: Dominant left vertebral artery. No aneurysmal dilation or branch occlusion is identified. Transthoracic echocardiogram, 12/18/18, summary: Left ventricle: Systolic function is normal. The estimated ejection fraction is 60% to 65%. There are no regional wall motion abnormalities. Right ventricle: Systolic function is normal. Atrial septum: Bubble study was negative. Mitral valve: There is mild regurgitation. Aortic valve: There is no evidence of stenosis. There is trivial regurgitation. Tricuspid valve: There is mild regurgitation. The PAP is estimated at 39 mmHg. There is mild pulmonary hypertension. Pericardium: Extracardiac. There is no significant pericardial effusion. Impressions: No previous study was available for comparison. Renal and bladder ultrasound, 12/18/18, impression: No stones or hydronephrosis. Several cysts in the left kidney. Normal bladder with ureteral jet seen. DISCHARGE MEDICATIONS: Home medications: 1. Cholecalciferol 2000 units p.o. daily. 2. Multivitamin/minerals 1 tab p.o. daily. 3. Fluticasone nasal spray 50 mcg 1 spray to both nares daily p.r.n. allergy symptoms. 4. Esomeprazole 20 mg p.o. daily. 5. Alprazolam 0.25 mg p.o. at bedtime p.r.n. anxiety. New home medications: 1. Aspirin 81 mg p.o. daily. Changed home medications: 1. Lisinopril, increased to 20 mg p.o. daily. 2. Levothyroxine, decreased to 88 mcg p.o. daily. HISTORY OF PRESENT ILLNESS/HOSPITAL COURSE: Ms. Youssef is a 78-year-old female with a past medical history of migraines, hypertension, hypothyroid, who presented to the emergency department on 12/18/18 with complaints of perioral numbness, left arm tingling, loss of peripheral vision, and flashes of light. This occurred midday for approximately 30 minutes and then went away. She states that the perioral numbness returned and then went away again. It is noted that the patient was diagnosed with UTI on Monday and was treated with Cipro. She states that she has had this medication in the past and her right arm went numb with its use, so she discontinued the medication. She does also have a history of migraines, but states that she has not had a migraine in over 15 years, although she does report that the flashes of light were similar to that of a migraine. After this subsided, she was left with a dull headache, which eventually went away. She was admitted due to concern for possible TIA. Cipro was discontinued as her symptoms were similar to those which she experienced while taking Cipro in the past. This will be listed on her chart as an allergy. She was placed on telemetry, which revealed normal sinus rhythm throughout her stay. CT, MRI/MRA of the brain, carotid Dopplers were within normal limits. TTE revealed a negative bubble study, EF of 60% to 65%. The patient was started on 81 mg of aspirin. It is also noted that the patient's systolic blood pressure was 215. When she arrived at the hospital, she had reportedly not taken her lisinopril today. She did receive 10 mg in the ER. Her blood pressure decreased, but was still elevated throughout her stay and ranged from systolic blood pressure of 143 to 175 overnight. The patient's lisinopril was increased to 20 mg per day due to this. The patient was noted to have a mildly elevated LDL of 89. Dr. Medrano discussed this with the patient and she would like to forgo treatment with statin medication and work on her diet. Troponins were negative x1. The patient's TSH was noted to be low with an elevated free T4. For this reason, her Synthroid was decreased from 100 to 88 mcg daily. Concerning the patient's chief complaints, the differentials include migraine headache, hypertensive emergency, drug reaction to ciprofloxacin, and possible TIA. For this reason, the patient will have Cipro listed as a drug allergy. She will receive aspirin 81 mg daily. She will have an increase in her lisinopril dosing with recommendations to follow up with her primary care provider for further management of hypertension. At the time of discharge, the patient is sitting in a chair in her room with her lower extremities on the floor. She states that her symptoms of left arm tingling, perioral numbness, loss of peripheral vision and "lightening bulbs" flashing across the visual field had occurred for approximately 30 minutes and went away. The perioral numbness returned, but then disappeared quickly. Since admission, she has had no signs and symptoms. She denies chest pain, shortness of breath, cough, fever , headache, nausea, vomiting, diarrhea, abdominal pain, pain in the calves. She denies peripheral vision loss, weakness in the extremities, vision changes. PHYSICAL EXAMINATION: General: Ms. Youssef is a well-developed, well- nourished, overweight, white, older female, who is sitting in a chair. She appears well. She is cooperative and pleasant. She appears to be in no acute distress. She appears her stated age. Vital Signs: Temperature 97.9 oral, heart rate 73, respiratory rate 14, oxygen saturation 98% on room air, blood pressure 160/71. HEENT: Visual vasquez are grossly intact. The pupils are equally round and reactive to light. Extraocular movements are intact. Sclerae are without icterus. Hearing is grossly intact. Oral mucous membranes are moist. There are no lesions. The pharynx is clear. Neck with full range of motion. Trachea at midline. Cardiovascular: Regular rate and rhythm with S1, S2 present. No murmurs, rubs, or gallops. There is no JVD. Telemetry reveals normal sinus rhythm overnight. Respiratory: Symmetrical chest expansion without use of accessory muscles. Lungs are clear to auscultation. There are no rhonchi, wheezes, or rales. Abdomen: Bowel sounds in all quadrants. The abdomen is soft and nontender to palpation. Musculoskeletal: Full range of motion without pain or deformities. Extremities: Skin is warm and smooth bilaterally. There is no clubbing, cyanosis, or edema. The radial and pedal pulses are palpable. Neuro: The patient is awake. She is alert and oriented x3. Cranial nerves II through XII are grossly intact. She is able to move all of her extremities. Motor strength is 5/5 in the upper and lower extremities bilaterally. DISCHARGE PLAN: Ms. Youssef will be discharged to home. ACTIVITY: As tolerated. DIET: Heart-healthy. MEDICATIONS: 1. Lisinopril increased to 20 mg daily. Monitor blood pressure daily, keep log , bring to next office visit. 2. Levothyroxine decreased to 88 mcg due to low TSH. Recheck TSH in 4 to 6 weeks. 3. Start aspirin 81 mg daily. EDUCATION: 1. Follow up with primary care provider in 4 to 7 days. 2. Follow up with Neurology as needed. 3. Return to the ER or nearest hospital if you experience any recurrence of symptoms, chest discomfort, shortness of breath, dizziness, lightheadedness, syncope, high fevers, chills, night sweats, or any other worrisome signs or symptoms. This is a summarized report of a complex medical history and hospital stay. For further details, please see the entire medical record. TIME SPENT: Approximately 35 minutes was spent on this discharge; greater than half that time was spent [id number] with the patient discussing discharge plans and instructions. JOEL ROD [id number]/[facility] #: [id number] EMILIA
== END 2018-12-19 11:42 | disposition home or self-care (01) ==
LOC: ED 13:55 → MEDTELE 18:24
PROVIDERS: ADMIT Internal Medicine; ATTEND Internal Medicine
DX: I16.1 Hypertensive emergency (principal); T36.8X5A Adverse effect of other systemic antibiotics, initial encounter; Y92.9 Unspecified place or not applicable; I10 Essential (primary) hypertension; E03.9 Hypothyroidism, unspecified; G43.909 Migraine, unspecified, not intractable, without status migrainosus; K21.9 Gastro-esophageal reflux disease without esophagitis; Z79.82 Long term (current) use of aspirin; Z90.710 Acquired absence of both cervix and uterus; Z88.0 Allergy status to penicillin; E11.9 Type 2 diabetes mellitus without complications; Z87.891 Personal history of nicotine dependence; Z86.19 Personal history of other infectious and parasitic diseases; R51 Headache; R20.2 Paresthesia of skin; E05.90 Thyrotoxicosis, unspecified without thyrotoxic crisis or storm
CPT/HCPCS: 36415; 70450; 70544; 70551; 76770; 80053; 80061; 81003; 81015; 82607; 83605; 84439; 84443; 84479; 84484; 85025; 85049; 85610; 85652; 85730; 86140; 93005; 93306; 93880; 96372; 99285; A9270-GY; G0378; J1650

== ENCOUNTER 2019-01-08 05:11 | Emergency (ER) | payer MEDICARE ==
[2019-01-08] MEDS ORDERED: Ondansetron INJ* 2 MG/ML VIAL IV ONE (05:50)
[2019-01-08] MEDS ORDERED: NS 0.9% 1000 ML** 1,000 ML IV ONE ×2 (05:50→08:08)
--- NOTE | 2019-01-08 05:52 | ED ---
Abdominal Pain/Female - HPI Summary HPI Summary: Pt. is a 78 y.o female who presents to the ER for acute left sided flank pain and left lower abd. pain. Pt. states pain started acutely today at 0200. Pain is sharp and constant. Associated sxs of nausea and chills. Denies fever, vomiting, diarrhea, constipation, CP, SOB, rash, cough. Pt. notes she was tx for a UTI a few weeks ago. She believes she has had kidney stones when she was younger but is unsure. Pt. notes she has chronic hematuria and has an apt. with a urologist this month for further evaluation. Sxs are moderate in severity. No current modifying factors. - History of Current Complaint Chief Complaint: EDFlankPain Stated Complaint: BACK PAIN PER PT Time Seen by Provider: 01/08/19 05:40 Hx Obtained From: Patient Pain Intensity: 6 Allergies/Adverse Reactions: Allergies Allergy/AdvReac Type Severity Reaction Status Date / Time acetazolamide Allergy Unknown Verified 01/08/19 05:22 Reaction Details celecoxib [From Celebrex] Allergy GI Upset Verified 01/08/19 05:22 Penicillins Allergy Unknown Verified 01/08/19 05:22 Reaction Details vancomycin Allergy Rash Verified 01/08/19 05:22 nitrofurantoin AdvReac GI Upset Verified 01/08/19 05:22 [From Macrodantin] oxycodone [From Percocet] AdvReac Nausea And Verified 01/08/19 05:22 Vomiting Home Medications: Home Medications Lisinopril/HCTZ 20/12.5(NF) [Zestoretic 20/12.5(NF)] 1 tab PO DAILY 01/08/19 [ History Confirmed 01/08/19] PMH/Surg Hx/FS Hx/Imm Hx Previously Healthy: Yes Endocrine/Hematology History: Reports: Hx Diabetes, Hx Thyroid Disease Cardiovascular History: Reports: Hx Hypertension Denies: Hx Pacemaker/ICD Respiratory History: Reports: Hx Asthma Denies: Hx Chronic Obstructive Pulmonary Disease (COPD) GI History: Reports: Hx Gastroesophageal Reflux Disease, Hx Irritable Bowel - MANY YEARS AGO Denies: Hx Ulcer History: Denies: Hx Renal Disease Musculoskeletal History: Reports: Hx Arthritis Sensory History: Reports: Hx Cataracts, Hx Contacts or Glasses Denies: Hx Hearing Aid Opthamlomology History: Reports: Hx Cataracts, Hx Contacts or Glasses Neurological History: Reports: Hx Migraine - IN THE PAST Psychiatric History: Denies: Hx Panic Disorder - Cancer History Cancer Type, Location and Year: SKIN CA - Surgical History Surgery Procedure, Year, and Place: hysterectomy - 1973. appendectomy - 1998. BLADDER suspension surgery - 2007. R carpal tunnel 2017 Hx Anesthesia Reactions: No - Immunization History Date of Tetanus Vaccine: utd Date of Influenza Vaccine: fall 2017 Infectious Disease History: No Infectious Disease History: Reports: Hx Shingles Denies: Hx Hepatitis, Hx Human Immunodeficiency Virus (HIV), Traveled Outside the in Last 30 Days - Family History Known Family History: Positive: None, Cardiac Disease, Hypertension, Other - Heart issues, breast cancer, melanoma - Social History Occupation: Retired Lives: With Family Alcohol Use: None Substance Use Type: Reports: None Smoking Status (MU): Former Smoker Have You Smoked in the Last Year: No Review of Systems Positive: Chills. Negative: Fever Cardiovascular: Negative Negative: Palpitations, Chest Pain Respiratory: Negative Negative: Shortness Of Breath, Cough Positive: Abdominal Pain, Nausea. Negative: Vomiting, Diarrhea Positive: flank pain, hematuria - chronic per pt.. Negative: dysuria Musculoskeletal: Negative Skin: Negative Negative: Rash Neurological: Negative All Other Systems Reviewed And Are Negative: Yes Physical Exam Triage Information Reviewed: Yes Vital Signs On Initial Exam: Initial Vitals Temp Pulse Resp BP Pulse Ox 97.8 F 70 18 147/72 97 01/08/19 05:13 01/08/19 05:13 01/08/19 05:13 01/08/19 05:13 01/08/19 05:13 Vital Signs Reviewed: Yes Appearance: Positive: Well-Appearing - Pt. sitting up in bed in NAD. present. Skin: Positive: Warm, Dry Head/Face: Positive: Normal Head/Face Inspection Eyes: Positive: Normal, EOMI, MATTHEW Neck: Positive: Supple Respiratory/Lung Sounds: Positive: Clear to Auscultation, Breath Sounds Present Cardiovascular: Positive: Normal, RRR Abdomen Description: Positive: Other: - Abd. is soft with tenderness to LLQ and left flank. No rebound tenderness or guarding. Musculoskeletal: Positive: Normal, Strength/ROM Intact Neurological: Positive: Normal, CN Intact II-III Psychiatric: Positive: Affect/Mood Appropriate Diagnostics - Vital Signs Vital Signs Temp Pulse Resp BP Pulse Ox 01/08/19 05:13 97.8 F 70 18 147/72 97 - Laboratory Result Diagrams: 01/08/19 06:07 01/08/19 06:07 Lab Statement: Any lab studies that have been ordered have been reviewed, and results considered in the medical decision making process. Abdominal Pain Fem Course/Dx - Course Course Of Treatment: Pt. presenting for left acute flank pain. She is aferile with stable VS. Pt. started on IV fluids and zofran. Labs shows mild leukocytosis of 12.6. Normal renal function. Lactic acid 2.5. U/A shows trace leuks., no bacteria, and RBCs. ECG done at 0621 shows a sinus rhythm of 68bpm, left axis deviation, no ST elevatoin or depression, unchanges from prior tracing. CT abd./pelvis: IMPRESSION: Moderate left-sided hydronephrosis with perinephric stranding. In the distal. ureter in the pelvis is a 2 mm calcified stone. Difficult to ascertain whether. this represents a stone in the ureter or an associated phlebolith. No calcified. stone within the bladder. Concern for possible infected stone. Pt. given another liter of fluids and IV rocephin. 0815: Case discussed with Dr. Montoya, urology. He reviewed labs and CT scan. He recommends outpt. treatment. Does not recommend PO antibx. Repeat lactic improved to 1.3. On re-exam pt. is resting comfortably and pain has improved. Results discussed. Will dc home with zofran and lortab. Increase fluids. Strain urine. to f.u with urology and return to ER for increased pain, fever, vomiting or if concerned. Pt. understands and agrees with plan. - Diagnoses Differential Diagnosis: Positive: Abdominal Aortic Aneurysm, ACS, Bowel Obstruction, Constipation, Diverticulitis, Gall Bladder Disease, Hepatitis, Irritable Bowel Syndrome, [place], Pancreatitis, Peptic Ulcer Disease, Pneumonia, Renal Colic, Urinary Tract Infection Provider Diagnoses: Hydronephrosis, Urolithiasis Discharge - Sign-Out/Discharge Documenting (check all that apply): Patient Departure Patient Received Moderate/Deep Sedation with Procedure: No - Discharge Plan Condition: Improved Disposition: HOME Prescriptions: HYDROcodone/ACETAMIN 5-325 MG* [[place] 5-325 TAB*] 1 tab PO Q6H PRN #12 tab MDD 4 PRN Reason: Pain Ondansetron TAB* [Zofran 4 MG Tab*] 4 mg PO Q6H PRN #12 tab PRN Reason: Pain Patient Education Materials: Kidney Stones (ED), Hydronephrosis (ED) Referrals: Livier Duffy MD [Primary Care Provider] - Noé Montoya MD [Medical Doctor] - Additional Instructions: Follow up with urology if pain persist Take medications as directed Increase fluids Strain urine Return to ER for increased pain, vomiting, fever or if concerned - Billing Disposition and Condition Condition: IMPROVED Disposition: Home
[2019-01-08 06:19] LABS: Urine Appearance Clear; Urine Bacteria Absent (Absent); Urine Bilirubin Negative (Negative); Urine Blood 2+ (Negative); Urine Color Yellow; Urine Glucose Negative (Negative); Urine Ketones Negative (Negative); Urine Nitrite Negative (Negative); Urine Protein Negative (Negative); Urine Red Blood Cell 3+(>10/hpf) (Absent); Urine Specific Gravity 1.017 (1.010-1.030); Urine Squamous Epithelial Cell Present (Absent); Urine Urobilinogen Negative (Negative); Urine White Blood Cell Trace(0-5/hpf) (Absent)
[2019-01-08 06:29] LABS: ABS Eosinophils 0.4 10^3/ul (0-0.6); ABS Monocytes 0.8 10^3/ul (0-0.8); ABS Neutrophils 10.4 10^3/ul (1.5-7.7); Eosinophil % 3.1 %; Hematocrit 42 % (35-47); Hemoglobin 13.7 g/dL (12.0-16.0); Lymphocyte % 7.5 %; Mean Corpuscular HGB Conc 33 g/dL (31-36); Mean Corpuscular Hemoglobin 31 pg (27-31); Mean Corpuscular Volume 94 fL (80-97); Mean Platelet Volume 8.8 fL (7.4-10.4); Nucleated Red Blood Cells % 0.1; Platelet Count 226 10^3/uL (150-450); Red Blood Count 4.49 10^6 /uL (3.70-4.87); Red Cell Distribution Width 13 % (10.5-15); White Blood Count 12.6 10^3/uL (3.5-10.8)
[2019-01-08 06:44] LABS: Albumin 4.2 g/dL (3.2-5.2); Albumin/Globulin Ratio 1.5 (1-3); BUN/Creatinine Ratio 27.7 (8-20); C Reactive Protein 6.41 mg/L (<8.01); Calcium 10.1 mg/dL (8.6-10.3); EGFR African American 80.2 (>60); EGFR Non-African American 66.3 (>60); Globulin 2.8 g/dL (2-4); Potassium 3.9 mmol/L (3.5-5.0); Total Bilirubin 0.7 mg/dL (0.2-1.0)
[2019-01-08] MEDS ORDERED: Ketorolac INJ* 30 MG/ML 1 ML VIAL IV PUSH ONE (06:48)
[2019-01-08] MEDS ORDERED: ED cefTRIAXone 1 GM/50 ML 1 GM/50 ML PREMIX.SET IVPB ONE (08:09)
[2019-01-08] MEDS ORDERED: cefTRIAXone(*) 1 GM in NS 0.9% 50 ML* 50 ML IVPB ONE (09:00)
[2019-01-08 10:16] VITALS: BP 131/61
== END 2019-01-08 10:13 | disposition home or self-care (01) ==
LOC: ED 05:11
DX: N13.2 Hydronephrosis with renal and ureteral calculous obstruction (principal); Z87.891 Personal history of nicotine dependence; E11.9 Type 2 diabetes mellitus without complications; I10 Essential (primary) hypertension; J45.909 Unspecified asthma, uncomplicated; K21.9 Gastro-esophageal reflux disease without esophagitis; K58.9 Irritable bowel syndrome, unspecified; E07.9 Disorder of thyroid, unspecified; Z88.0 Allergy status to penicillin; Z85.828 Personal history of other malignant neoplasm of skin
CPT/HCPCS: 36415; 74176; 80053; 81003; 81015; 83605; 83690; 84484; 85025; 86140; 87086; 93005; 96361; 96374; 96375; 99284; J0696; J1885; J2405

== ENCOUNTER 2019-01-19 06:08 | Inpatient (IN) | payer MEDICARE ==
--- NOTE | 2019-01-19 07:13 | ED ---
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 Gradual onset. Took ibuprofen yesterday which helped but pain returned last night along with fever/chills last night - 102F per pt. Could not take ibuprofen/acetaminophen upon identifying fever d/t nausea - tried zofran but vomited. Denies radiating pain into legs, numbness, tingling, weakness, swelling. Upon further review, she was recently seen for perioral numbness here in ED on . After comprehensive neuro and cardiac w/ to r/o TIA, etc, pt was dx'd w/ fluoroquinilone allergy. She had been taking cipro for UTI/Lt flank nephrolithiasis that was dx'd in December however this was d/c'd upon realization of allergy and no new anbx was initiated. Urine cx from 01/08/2019 was neg but pt had been taking cipro then. She believes she passed her stone 01/09/2019 as she saw a black solid in the toilet s/p urinary void. Admits to increased urinary frequency, urgency and incontinence since. Denies dysuria, fullness and/or pain in vaginal/rectal area. Last BM yesterday - normal. Last ate last night prior to nausea. H/o bladder sling surgery - no complaints since. No h/o RICKI back issues nor aneurysms. CT ab/pelvis on 01/08 admission: "moderate Left sided hydronephrosis (not previously present). In the following ureter down into the pelvis there is a 2mm calcification within the pelvis - (stone vs. phlebolith). Surrounded by soft tissue. Multiple left renal cortical cysts. Largest cyst 3.4cm in length. Grade 1 anterolisthesis of L4 on L5 2ndry to deg changes of facet joint/disc space. Multiple surgical clips RLQ(pt reports h/o appendectomy). 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 " There was a "subtle hyperdensity noted in the gallbladder wall" however pt has been told she's had "sludge" here in the past and denies RUQ, diarrhea, pain/N/ V after eating. NOTE: BP increased at last visit - lisinopril increased from 10mg to 20mg daily. Was unable to take any of her meds today d/t n/v - History of Current Complaint Chief Complaint: EDFever Time Seen by Provider: 01/19/19 06:17 Hx Obtained From: Patient, Family/Life Skills Coordinator - - Allergy/Home Medications Allergies/Adverse Reactions: Allergies Allergy/AdvReac Type Severity Reaction Status Date / Time acetazolamide Allergy Unknown Verified 01/08/19 05:22 Reaction Details celecoxib [From Celebrex] Allergy GI Upset Verified 01/08/19 05:22 Penicillins Allergy Unknown Verified 01/08/19 05:22 Reaction Details vancomycin Allergy Rash Verified 01/08/19 05:22 nitrofurantoin AdvReac GI Upset Verified 01/08/19 05:22 [From Macrodantin] oxycodone [From Percocet] AdvReac Nausea And Verified 01/08/19 05:22 Vomiting Home Medications: Home Medications Lisinopril/HCTZ 20/12.5(NF) [Zestoretic 20/12.5(NF)] 1 tab PO DAILY 01/19/19 [ History Confirmed 01/19/19] Vitamin D TAB* 1 tab PO DAILY 01/19/19 [History Confirmed 01/19/19] PMH/Surg Hx/FS Hx/Imm Hx Previously Healthy: Yes Endocrine/Hematology History: Reports: Hx Thyroid Disease Cardiovascular History: Reports: Hx Hypertension Denies: Hx Pacemaker/ICD Respiratory History: Reports: Hx Asthma Denies: Hx Chronic Obstructive Pulmonary Disease (COPD) GI History: Reports: Hx Gastroesophageal Reflux Disease, Hx Irritable Bowel - MANY YEARS AGO Denies: Hx Ulcer History: Reports: Hx Kidney Stones - Lt side 2018 Denies: Hx Renal Disease Musculoskeletal History: Reports: Hx Arthritis, Other Musculoskeletal History - grade 1 anterolisthesis L4 on L5 Sensory History: Reports: Hx Cataracts, Hx Contacts or Glasses Denies: Hx Hearing Aid Opthamlomology History: Reports: Hx Cataracts, Hx Contacts or Glasses EENT History: Reports: Other - edentulous Neurological History: Reports: Hx Migraine - IN THE PAST Psychiatric History: Denies: Hx Panic Disorder - Cancer History Cancer Type, Location and Year: SKIN CA - Surgical History Surgery Procedure, Year, and Place: hysterectomy - 1973. appendectomy - 1998. BLADDER suspension surgery - 2007. R carpal tunnel 2017 Hx Anesthesia Reactions: No - Immunization History Date of Tetanus Vaccine: utd Date of Influenza Vaccine: fall 2017 Infectious Disease History: No Infectious Disease History: Reports: Hx Shingles Denies: Hx Hepatitis, Hx Human Immunodeficiency Virus (HIV), Traveled Outside the [place] in Last 30 Days - Family History Known Family History: Positive: Cardiac Disease, Hypertension, Other - Heart issues, breast cancer, melanoma - Social History Occupation: Employed Full-time - nurse Lives: With Family Alcohol Use: None Hx Substance Use: No Substance Use Type: Reports: None Hx Tobacco Use: Yes - not currently Smoking Status (MU): Former Smoker Have You Smoked in the Last Year: No Review of Systems Positive: Fever, Chills, Fatigue Eyes: Negative ENT: Negative Negative: Sore Throat, Ear Ache, Nasal Discharge Cardiovascular: Negative Respiratory: Negative Positive: Abdominal Pain, Vomiting, Nausea Positive: see HPI Musculoskeletal: Other - mid low back pain Skin: Negative Positive: Headache Psychological: Normal All Other Systems Reviewed And Are Negative: Yes Physical Exam Triage Information Reviewed: Yes Vital Signs On Initial Exam: Initial Vitals Temp Pulse Resp BP Pulse Ox 98.9 F 99 18 177/99 97 01/19/19 06:09 01/19/19 06:09 01/19/19 06:09 01/19/19 06:09 01/19/19 06:09 Vital Signs Reviewed: Yes Appearance: Positive: Ill-Appearing - appears fatigued wrapped in blankets from home and from ED Skin: Positive: Warm, Skin Color Reflects Adequate Perfusion, Dry - no rash, ecchymosis, patechiae, wound Head/Face: Positive: Normal Head/Face Inspection Eyes: Positive: Normal, EOMI, MATTHEW, Conjunctiva Clear, Other: - appears to have had cataract surgery ENT: Positive: Hearing grossly normal, Pharynx normal - mucosa somewhat dry, TMs normal. Negative: Nasal congestion, Nasal drainage Dental: Positive: Other - edentulous Neck: Positive: Supple, Nontender, No Lymphadenopathy Respiratory/Lung Sounds: Positive: Clear to Auscultation, Breath Sounds Present. Negative: Rales, Rhonchi, Wheezes Cardiovascular: Positive: Normal, RRR, Pulses are Symmetrical in both Upper and Lower Extremities - pedal pulses equal B/L, S1, S2. Negative: Murmur, Rub, Leg Edema Left, Leg Edema Right Abdomen Description: Positive: Soft, CVA Tenderness (L), Other: - generalized mild TTP - no rebounding. Negative: CVA Tenderness (R), Distended, Guarding Bowel Sounds: Positive: Present Pelvic Exam: Positive: Other - deferred by pt Musculoskeletal: Positive: Normal, Strength/ROM Intact Neurological: Positive: Normal, Sensory/Motor Intact, Alert, Oriented to Person Place, Time, CN Intact II-III Psychiatric: Positive: Normal - Henrry Coma Scale Best Eye Response: 4 - Spontaneous Best Motor Response: 6 - Obeys Commands Best Verbal Response: 5 - Oriented Coma Scale Total: 15 Diagnostics - Vital Signs Vital Signs Temp Pulse Resp BP Pulse Ox 01/19/19 06:27 88 89 01/19/19 06:26 96 181/78 97 01/19/19 06:09 98.9 F 99 18 177/99 97 - Laboratory Result Diagrams: 01/19/19 07:39 01/19/19 07:39 Lab Statement: Any lab studies that have been ordered have been reviewed, and results considered in the medical decision making process. Re-Evaluation - Re-Evaluation First Eval Change: Improved - nausea resolved w/ IV zofran - pain improved with morphine but would like toradol for remaining pain - looks better, sitting up, eating ice chips w/o difficulty, more alert/energetic Second Eval Change: Worse - pt's pain was better and nausea had resolved but pain is creeping back and nausea returned along with dry heaves - temp up to 102F and cannot tolerate PO acetaminophen - ordered suppository and additional morphine for pain if acetaminophen is not affective for pain relief. Ordered additional zofran as well but pt to report is not effective - will provide alternative anti -emetic. Appears ill again, wrapped in blankets. Also reports B/L LE cramps since here today - admits she was rx'd magnesium since last d/c - will check level today and replace as needed. Flu Symptom Course/Dx - Course Course Of Treatment: KUB: previous Lt distal uretral stone is not visualized. WBC 13, Neut 12, CRP 14 - all are elevated from labs on 01/08/2019. U/A: + blood , + RBC's, + bacteria. Does not meet sepsis criteria so heavy IV fluids were not given immediately (NOTE: pt has h/o elevated BP and takes HCTZ combo) however ceftriaxone was ordered as soon as elevated WBC's returned. Lactic acid level has been normal and pt afebrile until after CT scan. With report of fever at home and in the face of recent nephrolithiasis with worsening Lt flank pain, N/V - CT to asses for pyelonephritis. Blood cx's taken prior to admin of ceftriaxone for suspected infection. N/V and pain controlled w/ improvement of BP. CT reveals: hydro w/o stranding - previous stone not identified here today - no other acute findings. Repeat ab exam is NTTP (better after IV fluids). Pt later reported LE cramps while here - checked mag level which was 1.7 - 2 grams IV mag ordered (NOTE: pt reports Dr. Medrano started her on mag during last admission). Discussed w/ pt and Dr. Campbell for possible admission d/t PO intolerance in the face of infection, suspected UTI w/o obvious uretral obstruction or renal abscess. Dr. Campbell agrees to see pt and pt willing to be admitted if needed. - Diagnoses Provider Diagnoses: UTI (urinary tract infection) Discharge - Sign-Out/Discharge Documenting (check all that apply): Patient Departure Patient Received Moderate/Deep Sedation with Procedure: No - Discharge Plan Condition: Guarded Disposition: ADMITTED TO [facility] - Billing Disposition and Condition Condition: GUARDED Disposition: Admitted to [facility]
[2019-01-19] MEDS ORDERED: Ondansetron INJ* 2 MG/ML VIAL IV ONE ×2 (07:14→12:36)
[2019-01-19] MEDS ORDERED: Morphine 4 MG/ML VIAL (1 ml) 4 MG/ML VIAL IV ONE (07:17)
[2019-01-19] MEDS ORDERED: NS 0.9% 1000 ML** 1,000 ML IV ONE ×2 (07:17→08:36)
[2019-01-19 07:52] LABS: ABS Eosinophils 0.3 10^3/ul (0-0.6); ABS Lymphocytes 0.3 10^3/ul (1.0-4.8); ABS Monocytes 0.6 10^3/ul (0-0.8); ABS Neutrophils 12.1 10^3/ul (1.5-7.7); Eosinophil % 1.9 %; Hematocrit 40 % (35-47); Hemoglobin 13.3 g/dL (12.0-16.0); Lymphocyte % 2.6 %; Mean Corpuscular HGB Conc 33 g/dL (31-36); Mean Corpuscular Hemoglobin 30 pg (27-31); Mean Corpuscular Volume 92 fL (80-97); Mean Platelet Volume 8.2 fL (7.4-10.4); Platelet Count 200 10^3/uL (150-450); Red Blood Count 4.39 10^6 /uL (3.70-4.87); Red Cell Distribution Width 13 % (10-15); White Blood Count 13.3 10^3/uL (3.5-10.8)
[2019-01-19 07:59] LABS: Activated Partial Thrombo Time 31.1 seconds (26.0-38.0); INR 0.98 (0.82-1.09)
[2019-01-19 08:08] LABS: Albumin/Globulin Ratio 1.4 (1-3); BUN/Creatinine Ratio 28.9 (8-20); C Reactive Protein 14.55 mg/L (<8.01); EGFR African American 80.2 (>60); EGFR Non-African American 66.3 (>60); Globulin 2.9 g/dL (2-4); Potassium 3.8 mmol/L (3.5-5.0); Total Bilirubin 0.8 mg/dL (0.2-1.0); Total Protein 6.9 g/dL (6.4-8.9)
[2019-01-19 08:11] LABS: Influenza A Molecular NEGATIVE (Negative); Influenza B Molecular NEGATIVE (Negative)
[2019-01-19] MEDS ORDERED: cefTRIAXone(*) 1 GM in NS 0.9% 50 ML* 50 ML IVPB ONE (08:31)
[2019-01-19] MEDS ORDERED: Ketorolac INJ* 30 MG/ML 1 ML VIAL IV PUSH ONE (08:37)
[2019-01-19 09:24] LABS: Urine Appearance Cloudy; Urine Bacteria 1+ (Absent); Urine Bilirubin Negative (Negative); Urine Blood 2+ (Negative); Urine Color Yellow; Urine Glucose Negative (Negative); Urine Ketones Negative (Negative); Urine Nitrite Negative (Negative); Urine Protein Negative (Negative); Urine Red Blood Cell 3+(>10/hpf) (Absent); Urine Specific Gravity 1.013 (1.010-1.030); Urine Squamous Epithelial Cell Present (Absent); Urine Urobilinogen Negative (Negative); Urine White Blood Cell Trace(0-5/hpf) (Absent)
[2019-01-19] MEDS ORDERED: Iodixanol* (CONTRAST) 320 MG/ML 100 ML SDV IV ONE (11:06)
[2019-01-19] MEDS: Acetaminophen TAB* 325 MG PO ONE ×2 (13:01→13:03)
[2019-01-19] MEDS ORDERED: Acetaminophen SUPP* 650 MG SUPP PR ONE ×2 (13:04→21:21)
[2019-01-19 13:36] LABS: Magnesium 1.7 mg/dL (1.9-2.7)
[2019-01-19] MEDS ORDERED: Magnesium Sulfate 2 GM IV* 2 GM/50 ML BAG IVPB ONE (13:42)
[2019-01-19] MEDS ORDERED: Acetaminophen TAB* 325 MG PO PRN (14:22)
[2019-01-19] MEDS ORDERED: traMADol TAB* 50 MG PO PRN (14:35)
[2019-01-19] MEDS ORDERED: hydrALAZINE IV* 20 MG/ML VIAL IV SLOW PU PRN (14:45)
[2019-01-19] MEDS ORDERED: HYDROcodone/ACETAMIN 5-325 MG* 1 TAB PO PRN (14:49)
[2019-01-19] MEDS ORDERED: ALPRAZolam TAB* 0.25 MG PO PRN (14:49)
[2019-01-19] MEDS ORDERED: Fluticasone NASAL SPRAY 50MCG* 16 gm SPRAY BTL BOTH NARES PRN (14:49)
[2019-01-19] MEDS ORDERED: Cefepime 1 GM in Dextrose(*) 1 GM/50 ML BAG IV SCH (16:00)
[2019-01-19] MEDS ORDERED: Lisinopril/HCTZ 20/12.5(NF) TAB PO SCH (16:00)
[2019-01-19] MEDS ORDERED: Lactated Ringers 1000 ML Bag* 1,000 ML IV SCH (16:00)
[2019-01-19] MEDS: Enoxaparin(*) 40 MG/0.4 ML SYR SUBCUT SCH (16:17)
--- NOTE | 2019-01-19 17:00 | HP ---
CC: Dr. Duffy * MEDICINE HISTORY AND PHYSICAL: DATE OF ADMISSION: 01/19/19 PROVIDER: Myrtle Wang NP ATTENDING PHYSICIAN: Dr. Fabi Berrios * (dictated by Myrtle Wang NP). PRIMARY CARE PROVIDER: Dr. Livier Duffy. CHIEF COMPLAINT: Mid to lower back pain and fever. HISTORY OF PRESENT ILLNESS: Ms. Youssef is a 78-year-old female, who presents today to the emergency room with concern for mid to lower back pain. She states that it pretty much started yesterday in the morning and lasted all day. She works as a nurse in a primary care office and denies any injury or trauma to the back. She denies any heavy lifting. She states it feels like someone punched her in the back repeatedly. She managed to make it through day, took ibuprofen later that evening with little to no effect. She woke up around 3 a.m. with fever and chills and states her fever was approximately 102 degrees Fahrenheit. At that point, she was also nauseated and was unable to take any medication for her pain or her Zofran. It was at this point she presented to the ER. She denies any chest pain, shortness of breath, abdominal pain except to the left flank, but denies any diarrhea or constipation. She states that she previously had constipation, but with the magnesium supplementation that she takes, this has mostly resolved. She denies any radiating pain into her legs, tingling or numbness, weakness or swelling. She does endorse urinary frequency and urgency and some urinary incontinence. She had previously been diagnosed with a kidney stone, but states that she has passed the stone around 01/09/19. Here in the ER, she was treated with IV fluids and was started on ceftriaxone. The lab work and urine was collected and sent for testing. She does have concern for elevated white blood cell count and magnesium level 1.7. Her urinalysis shows 2+ blood and 1+ bacteria in the urine, but negative for nitrites. Over the course of her ER stay, she did spike a 102.7 temp, which then maxed out at 103.3. Given these findings, Hospital Medicine was consulted for admission. PAST MEDICAL HISTORY: Includes: 1. Hypertension. 2. Hypothyroidism. 3. GERD. 4. Migraines. 5. History of nephrolithiasis. PAST SURGICAL HISTORY: Includes: 1. Appendectomy. 2. Hysterectomy. 3. Carpal tunnel release. 4. Bilateral cataracts. 5. Tonsillectomy. HOME MEDICATIONS: 1. Vitamin D 1 tab daily. 2. Zestoretic 20/12.5, she takes half a tab twice a day. 3. Multivitamin 1 tab daily. 4. Aspirin 81 mg daily. 5. Alprazolam 0.25 mg at bedtime p.r.n. 6. Ondansetron 4 mg p.o. q.6 hours p.r.n. 7. Levothyroxine 88 mcg q.a.m. 8. [place] 5/325 one tab q.6 hours p.r.n. 9. Fluticasone 1 spray to both nares daily p.r.n. 10. Esomeprazole 20 mg daily. ALLERGIES: Include ACETAZOLAMIDE, CELECOXIB, PENICILLINS, VANCOMYCIN, NITROFURANTOIN, and OXYCODONE. FAMILY HISTORY: She reports a father with history of an [place] and a mother with history of skin cancer. Her son from malignant melanoma and another son passed from esophageal cancer. There was a history of bladder and prostate cancer in her father. SOCIAL HISTORY: She denies tobacco, alcohol, or illicit drug use. She is and lives with her . Her , Gamaliel Youssef, is her surrogate decision maker and healthcare proxy in the event of emergency. She is a full code. REVIEW OF SYSTEMS: A 12-point review of systems was completed. All pertinent positives and negatives as per HPI. All those not mentioned are negative. PHYSICAL EXAMINATION GENERAL: This is a 78-year-old female, who appears to be her stated age. She is very restless on ED stretcher, having difficulty finding comfortable position. She is attempting to lie flat on her back, but is constantly moving from [id number]. VITAL SIGNS: Temperature 103.3, heart rate 104, respiratory rate 20, blood pressure 143/62, and O2 saturation is 92% on room air. HEENT: Head is atraumatic, normocephalic. Face is symmetrical. Pupils are equal, round, and reactive to light. Extraocular movements are intact. Oral mucosa is moist. No oropharyngeal erythema or exudates. NECK: Supple. No lymphadenopathy appreciated. Full range of motion present. There is no nuchal rigidity. RESPIRATORY: Lungs are clear to auscultation throughout all lung vasquez. No wheezes, rales, or rhonchi noted. CARDIOVASCULAR: Regular rate and rhythm. The rate is tachycardic. Apical pulse of 102. Normal S1 and S2 heart sounds. No murmur appreciated. No peripheral edema noted. Peripheral pulses are present both in the radial and pedal locations and are equal bilaterally. ABDOMEN: Soft. There is left-sided CVA tenderness and flank tenderness. There is tenderness to palpation to the left upper and lower quadrants and along the left flank. Bowel sounds are positive. MUSCULOSKELETAL: There is no clubbing or cyanosis. There is full range of motion in all 4 extremities. Low back is tender to palpation. NEURO: She is alert and oriented x4. Speech is fluent. No focal deficits noted. Cranial nerves II through XII are grossly intact. Strength is equal in upper and lower extremities and bilaterally. SKIN: Hot, but dry and intact. DIAGNOSTIC STUDIES/LAB DATA: CBC: WBC 13.3, hemoglobin 15.3, hematocrit 40, platelet count 200. INR of 0.98. CMP: Sodium 140, potassium 3.8, chloride 104 , carbon dioxide 28, BUN 24, creatinine 0.83, glucose 145, lactic acid 1.8, calcium 9.0, magnesium 1.7. AST 18, ALT 13, alk phos 138. CRP 14.55. Albumin 4.0. Urinalysis as per above. X-ray of the abdomen reads large amount of stool throughout the colon. Distal ureteral stone noted on previous CT is not well visualized on the current plain film examination. CT of the abdomen and pelvis with IV contrast reads as follows: 1. Left hydronephrosis without appreciable nephrolithiasis. No perinephric stranding or fluid collection. 2. Fatty infiltration of the liver. 3. Small amount of gas density within the bladder. Recommend correlation with recent instrumentation. Chest x-ray shows no active cardiopulmonary disease. EKG shows sinus rhythm with some T-wave flattening in leads V5, V6 and aVL. Old medical records were reviewed. ASSESSMENT AND PLAN: This is a 78-year-old female who presents today with concern for back pain in the presence of fever. She will be admitted under OBV status for the followin. Fever. Ms. Youssef has concern for a significant fever that is recurrent since 3 o'clock this morning. Presentation seems most consistent with urinary pathology. CT of the abdomen and pelvis and her UA did not definitively show a pyelonephritis as there is no perinephric stranding and her UA shows blood, but not significant amount of bacteria or nitrites. Other differential diagnoses would include lung disease although her chest x-ray is clear and she is without any adventitious lung sounds, may also include diverticulitis given her left lower abdominal pain, but again this is not present on CT scan. In any event, she is not tolerating much in the way of p.o. intake and she is febrile with a concerning temperature of 103. She has received one dose of ceftriaxone. Plan to broaden her coverage to cefepime and metronidazole (she is allergic to penicillins), which should cover abdominal pathogens as well. We will watch her closely. She has asked to eat and drink, which is reasonable. She has been advised to start with clear liquids and advance to what is tolerable. We will treat her for her pain and await urine cultures. 2. Low back pain. Again, this appears to be consistent with urinary tract infection or kidney stone, neither of which is definitively seen on her scans; however, her presentation again is consistent with this. Diverticulitis is not out of the differential. We will treat the pain and symptomatically treat her. I will give her a liter of fluids and continue on p.r.n. Toradol and tramadol for her pain management. 3. Hypertension. She is fairly hypertensive, as she was not able to swallow her medications this morning. We will restart her on her medications and she will have p.r.n. hydralazine available via IV if needed and continue to monitor. 4. Hypothyroidism. Continue levothyroxine at current dose. 5. Gastroesophageal reflux disease. Continue PPI. 6. History of migraines. Continue p.r.n. analgesia if this becomes an issue. 7. Recent admission with concern for transient ischemic attack. Continue aspirin 81 mg. 8. DVT prophylaxis: She will be on Lovenox subcu. 9. FEN: She is ordered a soft diet. 10. Code status: She is a full code. 11. Disposition: Anticipate discharge to home when medically clear. TIME SPENT: Approximately 65 minutes was spent on this admission with more than half that time was spent [id number] with the patient and her obtaining history and physical, performing physical examination, and reviewing the plan of care. Plan of care was also reviewed with my attending, Dr. Berrios, who is in agreement. MYRTLE WANG, WILMER [id number]/CPS #: [id number] EMILIA
[2019-01-19] MEDS: metroNIDAZOLE IV 500 MG/100ML* 500 MG/100 ML BAG IVPB SCH (17:03)
[2019-01-19] MEDS: Hydrochlorothiazide TAB* 25 MG PO SCH (17:07)
[2019-01-19] MEDS: Lisinopril TAB* 10 MG PO SCH (17:07)
[2019-01-19] MEDS: Ketorolac INJ* 30 MG/ML 1 ML VIAL IV PUSH PRN (19:45)
[2019-01-19] MEDS ORDERED: Morphine INJ* 2 MG/ML 1 ML SYRINGE (TWO MG - NEW SYRINGE VERSION) IV PRN (20:13)
--- NOTE | 2019-01-19 21:21 | PN ---
Hospitalist Progress Note Date of Service: 01/19/19 Received call from nursing that patient is persistently febrile. Patient seen in evaluation; she continues to endorse low back pain and is febrile (101 fever) . BP is mildly elevated, peripheral pulses 2+ with brisk cap refill. Patient reviewed with Dr. Arnett. Plan to schedule APAP q4h. Can alternate this with Toradol or ibuprofen. Cooling blanket ordered.
[2019-01-19] MEDS: PROCHLORPERAZINE INJ 5 MG/ML 2 ML VIAL IV PRN (21:40)
[2019-01-19] MEDS: Acetaminophen TAB* 325 MG PO SCH (21:41)
[2019-01-19] MEDS ORDERED: Cefepime 1 GM in Dextrose(*) 1 GM/50 ML q12h (Duplex) IV ONE (22:45)
--- NOTE | 2019-01-19 23:03 | PN ---
Hospitalist Progress Note Date of Service: 01/19/19 Called about preliminary blood culture results positive for gram + cocci "resembling strep" in 1 anaerobic bottle Pt remains persistently febrile even on ATC Tylenol and Toradol, no tachycardia , blood pressure stable, with leukocytosis, lactate not elevated, meeting sepsis criteria, but no e/o shock. Called to lab---micro tech actually reading second blood culture bottle which has also resulted positive for gram + cocci in chains Coverage: Cefipime 1gm q 12 and Flagyl 500mg q 12 -> Called to pharmacy, discussed blood culture results, again gram + cocci in chains certainly includes streptococcus, strep pneumo, possible enterococcus, pt is covered for all except VRE which is possible (though unlikely) from a urinary source. I am more concerned that her Cefipime is underdosed and will increase to 2g q 8 hours, which is appropriate for her CrCl, out of abundance of caution I will cover the patient for VRE given persistent fevers on (albeit possibly underdosed ) 4th generation cephaloasporin and order Linezolid 600mg IV q 12 until susceptibilities.
[2019-01-19] MEDS: Linezolid 600 MG IVPREMIX(*) 600 MG/300 ML BAG IVPB SCH (23:54)
[2019-01-20] MEDS: metroNIDAZOLE IV 500 MG/100ML* 500 MG/100 ML BAG IVPB SCH ×2 (00:46→09:04)
[2019-01-20] MEDS: Acetaminophen TAB* 325 MG PO SCH ×4 (01:25→15:53)
[2019-01-20] MEDS: Ketorolac INJ* 30 MG/ML 1 ML VIAL IV PUSH PRN ×3 (03:07→15:19)
[2019-01-20] MEDS: Ondansetron INJ* 2 MG/ML VIAL IV PRN ×2 (03:07→14:27)
[2019-01-20] MEDS: CEFEPIME 2 GM IV SCH ×2 (05:30→15:03)
[2019-01-20] MEDS: DEXTROSE IV SCH ×2 (05:30→15:03)
[2019-01-20] MEDS: Levothyroxine TAB* 88 MCG TAB PO SCH (05:30)
[2019-01-20 07:02] LABS: ABS Basophils 0.1 10^3/ul (0-0.2); ABS Lymphocytes 0.5 10^3/ul (1.0-4.8); ABS Neutrophils 17.6 10^3/ul (1.5-7.7); Hematocrit 35 % (35-47); Hemoglobin 11.7 g/dL (12.0-16.0); Lymphocyte % 2.5 %; Mean Corpuscular HGB Conc 33 g/dL (31-36); Mean Corpuscular Hemoglobin 31 pg (27-31); Mean Corpuscular Volume 93 fL (80-97); Mean Platelet Volume 8.7 fL (7.4-10.4); Platelet Count 160 10^3/uL (150-450); Red Blood Count 3.79 10^6 /uL (3.70-4.87); Red Cell Distribution Width 13 % (10-15); White Blood Count 19.2 10^3/uL (3.5-10.8)
[2019-01-20 07:16] LABS: BUN/Creatinine Ratio 22.9 (8-20); C Reactive Protein 190.21 mg/L (<8.01); Calcium 7.9 mg/dL (8.6-10.3); EGFR African American 67.8 (>60); EGFR Non-African American 56.1 (>60); Potassium 3.2 mmol/L (3.5-5.0)
[2019-01-20 08:24] LABS: Magnesium 1.9 mg/dL (1.9-2.7)
[2019-01-20] MEDS ORDERED: cefTRIAXone(*) 1 GM in NS 0.9% 50 ML* 50 ML IVPB SCH (09:00)
[2019-01-20] MEDS ORDERED: Potassium Chlor TAB* 20 MEQ TAB.ER PO ONE (09:00)
[2019-01-20] MEDS: Hydrochlorothiazide TAB* 25 MG PO SCH (09:03)
[2019-01-20] MEDS: Pantoprazole TAB * 40 MG TAB PO SCH (09:04)
--- NOTE | 2019-01-20 11:13 | PN ---
Subjective Date of Service: 01/20/19 Interval History: Patient reports she feels much better today. Denies any further high temperatures or chills/rigors. Reports she developed rigor yesterday am and had them up until last evening. N/V has resolved. Denies CP/SOB. Continues to reports urinary urgency; denies dysuria. reports continue left flank pain but better. Objective Active Medications: Acetaminophen (Tylenol Tab*) 650 mg PO Q4H [facility] Last Admin: 01/20/19 05:20 Dose: Not Given Alprazolam (Xanax Tab*) 0.25 mg PO BEDTIME PRN PRN Reason: ANXIETY Aspirin (Aspirin Ec Tab*) 81 mg PO DAILY [facility] Enoxaparin Sodium (Lovenox(*)) 40 mg SUBCUT Q24H [facility] Last Admin: 01/19/19 16:17 Dose: 40 mg Fluticasone Propionate (Flonase Nasal [place] 50mcg*) 1 spray BOTH NARES DAILY PRN PRN Reason: Allergy Symptoms Metronidazole/Sodium Chloride (Flagyl 500 Mg Ivpb*) 500 mg in 100 mls @ 100 mls /hr IVPB Q8H [facility] Last Admin: 01/20/19 09:04 Dose: 100 mls/hr Cefepime HCl (Maxipime 2 Gm In Dextrose Duplex (*)) 2 gm in 50 mls @ 100 mls/ hr IV Q8H [facility] Last Admin: 01/20/19 05:30 Dose: 100 mls/hr Linezolid (Zyvox 600 Mg Ivpremix(*)) 600 mg in 300 mls @ 300 mls/hr IVPB Q12H [facility] Last Admin: 01/19/19 23:54 Dose: 300 mls/hr Potassium Chloride (Potassium Chloride 20 Meq/100 Ml Ivpremix*) 20 meq in 100 mls @ 50 mls/hr IV Q2H [facility] Stop: 01/20/19 14:59 Ketorolac Tromethamine (Toradol Inj*) 30 mg IV PUSH Q6H PRN PRN Reason: PAIN Last Admin: 01/20/19 09:23 Dose: 30 mg Levothyroxine Sodium (Synthroid Tab*) 88 mcg PO QAM@0600 [facility] Last Admin: 01/20/19 05:30 Dose: 88 mcg Morphine Sulfate (Morphine Inj (Syringe))*) 2 mg IV Q4H PRN PRN Reason: PAIN - BREAKTHROUGH Multivitamins/Minerals (Theragran/Minerals Tab*) 1 tab PO DAILY [facility] Ondansetron HCl (Zofran Inj*) 4 mg IV Q6H PRN PRN Reason: NAUSEA/VOMITING Last Admin: 01/20/19 03:07 Dose: 4 mg Pantoprazole Sodium (Protonix Tab*) 40 mg PO DAILY [facility]; Protocol Last Admin: 01/20/19 09:04 Dose: 40 mg Prochlorperazine Edisylate (Compazine Inj*) 5 mg IV Q6H PRN PRN Reason: NAUSEA/VOMITING Last Admin: 01/19/19 21:40 Dose: 5 mg Tramadol HCl (Ultram*) 50 mg PO Q6H PRN PRN Reason: PAIN - BREAKTHROUGH Vital Signs - 8 hr 01/20/19 07:27 Temperature 99.2 F Pulse Rate 76 Respiratory 20 Rate Blood Pressure 112/48 (mmHg) O2 Sat by Pulse 95 Oximetry Oxygen Devices in Use Now: None Appearance: well developed 78 yo female A+Ox3 in NAD; appears well Eyes: No Scleral Icterus, PERRLA Ears/Nose/Mouth/Throat: Mucous Membranes Moist Neck: NL Appearance and Movements; NL JVP, No Thyroid Enlargement, Masses Respiratory: Symmetrical Chest Expansion and Respiratory Effort, Clear to Auscultation Cardiovascular: NL Sounds; No Murmurs; No JVD, RRR, No Edema Abdominal: NL Sounds; No Tenderness; No Distention, No Hepatosplenomegaly, - - left CVA tenderness Extremities: No Edema, No Clubbing, Cyanosis Skin: No Rash or Ulcers, No Nodules or Sclerosis Neurological: Alert and Oriented x 3, NL Sensation, NL Gait, NL Muscle Strength and Tone, - - no spinal back pain/tenderness on palpation; full ROM in neck Lines/Tubes/Other Access: Clean, Dry and Intact Peripheral IV Nutrition: Taking PO's Result Diagrams: 01/20/19 06:25 01/20/19 06:25 Microbiology and Other Data: Microbiology 01/19/19 07:39 Aerobic Blood Culture - Preliminary Blood Venous No Growth Day 1 Anaerobic Blood Culture - Preliminary Enterococcus Faecalis 01/19/19 07:44 Aerobic Blood Culture - Preliminary Blood Venous Enterococcus Faecalis Anaerobic Blood Culture - Preliminary Enterococcus Faecalis Assess/Plan/Problems-Billing Assessment: Mrs. Youssef is a 78 with a PMH of GERD, Hypothyroid, HTN, Migraines who presented with left flank pain and fever found to enterococcus bacteremia - Patient Problems (1) Bacteremia Comment: - enterococcus faecalis - suspect source - is stable; no signs of Sepsis : reports urinary urgency x1 week - kidney stone passed 01/09/19; left flank pain - left hydronephrosis noted on CT; obtain renal/bladder ultrasound Cardiac: low suspicion, no murmur noted; Obtain TTE POLISHER [employer] SANDER: low suspicion; no spinal pain - do not feel that she needs an MRI at this point GI: low suspicion; no symptoms Skin: no wounds/ulcers or areas of cellulitis - allergic to vanco and PCN - continue cefepime, flagyl, linezolid - repeat blood cultures today - ID consult placed for mon 01/21 (2) HTN (hypertension) Comment: - stable - hold home medication lisinopril and HCTZ (3) Pre-diabetes Comment: - newly diagnosed - follow up with PCP (4) Hypothyroid Comment: - last TSH low in DECEMBER - repeat thyroid labs (5) GERD (gastroesophageal reflux disease) Comment: continue PPI (6) Hx of TIA (transient ischemic attack) and stroke Comment: - December 2018 TIA - ASA 81 mg daily (7) Full code status (8) DVT prophylaxis Comment: - Lovenox Q24/hr Status and Disposition: switch to inpatient for bacteremia requiring IV abx. Home when medically stable
[2019-01-20] MEDS: Multivitamins/Minerals TAB PO SCH (11:31)
[2019-01-20] MEDS: Aspirin EC TAB* 81 MG TAB.EC PO SCH (11:31)
[2019-01-20] MEDS: Lisinopril TAB* 10 MG PO SCH (11:36)
[2019-01-20] MEDS: Linezolid 600 MG IVPREMIX(*) 600 MG/300 ML BAG IVPB SCH ×2 (11:50→23:50)
[2019-01-20] MEDS: KCL 20 MEQ/100 ML IVPREMIX* 20 MEQ/100 ML BAG IV SCH ×2 (12:24→14:44)
[2019-01-20 12:36] LABS: TSH (Thyroid Stimulating Horm) 0.59 mcIU/mL (0.34-5.60)
[2019-01-20 12:38] LABS: Free T4 1.12 ng/dL (0.61-1.12)
[2019-01-20 14:49] LABS: Free T3 1.9 pg/mL (2.5-3.9)
[2019-01-20 14:55] LABS: Thyroid Peroxidase Antibodies 12.19 IU/mL (<9)
[2019-01-20] MEDS: PROCHLORPERAZINE INJ 5 MG/ML 2 ML VIAL IV PRN (15:04)
[2019-01-20 15:07] LABS: Thyroglobulin Antibody II 1.3 IU/mL (<4.0)
[2019-01-20] MEDS ORDERED: Acetaminophen SUPP* 650 MG SUPP PR PRN (16:02)
[2019-01-20] MEDS ORDERED: cefTRIAXone(*) 2 GM in NS 0.9% 100 ML* 100 ML IVPB SCH (17:00)
[2019-01-20] MEDS: NS 0.9% 1000 ML** 1,000 ML IV SCH (17:15)
[2019-01-20] MEDS ORDERED: Ondansetron INJ* 2 MG/ML VIAL IV PRN (18:59)
[2019-01-20] MEDS: Enoxaparin(*) 40 MG/0.4 ML SYR SUBCUT SCH (19:25)
[2019-01-21] MEDS: NS 0.9% 1000 ML** 1,000 ML IV SCH (03:13)
[2019-01-21] MEDS: Ondansetron INJ* 2 MG/ML VIAL IV PRN ×2 (03:14→11:10)
[2019-01-21] MEDS: Ketorolac INJ* 30 MG/ML 1 ML VIAL IV PUSH PRN ×2 (04:35→23:35)
[2019-01-21] MEDS: Levothyroxine TAB* 88 MCG TAB PO SCH (05:43)
[2019-01-21 06:28] LABS: Albumin/Globulin Ratio 1.2 (1-3); BUN/Creatinine Ratio 25.6 (8-20); EGFR African American 81.4 (>60); EGFR Non-African American 67.2 (>60); Globulin 2.6 g/dL (2-4); Magnesium 1.9 mg/dL (1.9-2.7); Potassium 3.4 mmol/L (3.5-5.0); Total Bilirubin 0.7 mg/dL (0.2-1.0); Total Protein 5.6 g/dL (6.4-8.9)
[2019-01-21 06:53] LABS: ABS Eosinophils 0.1 10^3/ul (0-0.6); ABS Lymphocytes 0.6 10^3/ul (1.0-4.8); ABS Monocytes 0.7 10^3/ul (0-0.8); ABS Neutrophils 14.1 10^3/ul (1.5-7.7); Eosinophil % 0.5 %; Hematocrit 34 % (35-47); Hemoglobin 11.8 g/dL (12.0-16.0); Lymphocyte % 4.2 %; Mean Corpuscular HGB Conc 35 g/dL (31-36); Mean Corpuscular Hemoglobin 32 pg (27-31); Mean Corpuscular Volume 92 fL (80-97); Mean Platelet Volume 8.1 fL (7.4-10.4); Platelet Count 151 10^3/uL (150-450); Red Blood Count 3.63 10^6 /uL (3.70-4.87); Red Cell Distribution Width 13 % (10-15); White Blood Count 15.6 10^3/uL (3.5-10.8)
[2019-01-21] MEDS: Aspirin EC TAB* 81 MG TAB.EC PO SCH (09:04)
[2019-01-21] MEDS: Multivitamins/Minerals TAB PO SCH (09:05)
[2019-01-21] MEDS: Pantoprazole TAB * 40 MG TAB PO SCH (09:06)
[2019-01-21] MEDS: Acetaminophen TAB* 325 MG PO PRN ×2 (09:06→18:15)
[2019-01-21] MEDS: KCL 20 MEQ/100 ML IVPREMIX* 20 MEQ/100 ML BAG IV SCH ×2 (09:07→11:10)
--- NOTE | 2019-01-21 10:23 | PN ---
Subjective Date of Service: 01/21/19 Interval History: patient reports she feels much better today. Some nausea with antibiotics but reports overall she feel "a lot better". No further rigors. No fevers. Reports left flank pain is better. No difficulty urinating, no hematuria. Patient does not have a hx of prediabetes in the past this is a new dx. She would like to use lifestyle measures to try to reverse insulin resistance. Objective Active Medications: Acetaminophen (Tylenol Tab*) 650 mg PO Q4H PRN PRN Reason: FEVER/PAIN Last Admin: 01/21/19 09:06 Dose: 650 mg Acetaminophen (Tylenol Supp*) 650 mg [place] Q4H PRN PRN Reason: FEVER/PAIN Last Admin: 01/20/19 17:08 Dose: 650 mg Alprazolam (Xanax Tab*) 0.25 mg PO BEDTIME PRN PRN Reason: ANXIETY Aspirin (Aspirin Ec Tab*) 81 mg PO DAILY [facility] Last Admin: 01/21/19 09:04 Dose: Not Given Enoxaparin Sodium (Lovenox(*)) 40 mg SUBCUT Q24H [facility] Last Admin: 01/20/19 19:25 Dose: 40 mg Fluticasone Propionate (Flonase Nasal [place] 50mcg*) 1 spray BOTH NARES DAILY PRN PRN Reason: Allergy Symptoms Linezolid (Zyvox 600 Mg Ivpremix(*)) 600 mg in 300 mls @ 300 mls/hr IVPB Q12H [facility] Last Admin: 01/20/19 23:50 Dose: 300 mls/hr Sodium Chloride (Ns 0.9% 1000 Ml) 1,000 mls @ 100 mls/hr IV PER RATE [facility] Stop: 01/22/19 02:44 Last Admin: 01/21/19 03:13 Dose: 100 mls/hr Potassium Chloride (Potassium Chloride 20 Meq/100 Ml Ivpremix*) 20 meq in 100 mls @ 50 mls/hr IV Q2H [facility] Stop: 01/21/19 12:59 Last Admin: 01/21/19 09:07 Dose: 50 mls/hr Ketorolac Tromethamine (Toradol Inj*) 30 mg IV PUSH Q6H PRN PRN Reason: PAIN Last Admin: 01/21/19 04:35 Dose: 30 mg Levothyroxine Sodium (Synthroid Tab*) 88 mcg PO QAM@0600 [facility] Last Admin: 01/21/19 05:43 Dose: 88 mcg Morphine Sulfate (Morphine Inj (Syringe))*) 2 mg IV Q4H PRN PRN Reason: PAIN - BREAKTHROUGH Multivitamins/Minerals (Theragran/Minerals Tab*) 1 tab PO DAILY [facility] Last Admin: 01/21/19 09:05 Dose: Not Given Ondansetron HCl (Zofran Inj*) 4 mg IV Q6H PRN PRN Reason: NAUSEA/VOMITING Last Admin: 01/21/19 03:14 Dose: 4 mg Ondansetron HCl (Zofran Inj*) 4 mg IV ONCE PRN PRN Reason: NAUSEA Last Admin: 01/20/19 19:22 Dose: 4 mg Pantoprazole Sodium (Protonix Tab*) 40 mg PO DAILY [facility]; Protocol Last Admin: 01/21/19 09:06 Dose: 40 mg Prochlorperazine Edisylate (Compazine Inj*) 5 mg IV Q6H PRN PRN Reason: NAUSEA/VOMITING Last Admin: 01/20/19 15:04 Dose: 5 mg Tramadol HCl (Ultram*) 50 mg PO Q6H PRN PRN Reason: PAIN - BREAKTHROUGH Vital Signs - 8 hr 01/21/19 01/21/19 01/21/19 03:06 07:46 08:00 Temperature 97.6 F 98.4 F Pulse Rate 73 66 Respiratory 18 16 16 Rate Blood Pressure 134/59 127/57 (mmHg) O2 Sat by Pulse 98 97 97 Oximetry Oxygen Devices in Use Now: None Appearance: well developed 78 yo female A+Ox3 in NAD Eyes: No Scleral Icterus, PERRLA Ears/Nose/Mouth/Throat: NL Teeth, Lips, Gums, Mucous Membranes Moist Respiratory: Symmetrical Chest Expansion and Respiratory Effort, Clear to Auscultation Cardiovascular: NL Sounds; No Murmurs; No JVD, RRR, No Edema Abdominal: NL Sounds; No Tenderness; No Distention, - - mild CVA tenderness on left; improved from yesterday Extremities: No Edema, No Clubbing, Cyanosis Skin: No Rash or Ulcers Neurological: Alert and Oriented x 3, NL Sensation, NL Gait, NL Muscle Strength and Tone Lines/Tubes/Other Access: Clean, Dry and Intact Peripheral IV Nutrition: Taking PO's Result Diagrams: 01/21/19 06:46 01/21/19 05:31 Microbiology and Other Data: Microbiology 01/19/19 07:39 Aerobic Blood Culture - Preliminary Blood Venous No Growth Day 1 Anaerobic Blood Culture - Preliminary Enterococcus Faecalis 01/19/19 07:44 Aerobic Blood Culture - Preliminary Blood Venous Enterococcus Faecalis Anaerobic Blood Culture - Preliminary Enterococcus Faecalis Assess/Plan/Problems-Billing Assessment: Mrs. Youssef is a 78 with a PMH of GERD, Hypothyroid, HTN, Migraines who presented with left flank pain and fever found to enterococcus bacteremia - Patient Problems (1) Bacteremia Comment: - enterococcus faecalis 3/4 bottles - source - urine cx growing entercoccus - pyelonephitis with left sided hydronephrosis - stable; no signs of Sepsis : reports urinary urgency x1 week - kidney stone passed 01/09/19; left flank pain - left hydronephrosis noted on CT; renal/bladder ultrasound - showing left hydro, left jet and no obstruction. Discussed with Urology over the phone and does not recommend anything further at this time. Cardiac: low suspicion, no murmur noted; TTE report done this am and is pending [employer]: low suspicion; no spinal pain - do not feel that she needs an MRI at this point GI: low suspicion; no symptoms Skin: no wounds/ulcers or areas of cellulitis - allergic to vanco and PCN - continue linezolid - repeated blood cultures 01/20 - pending - Appreciate ID consult - agrees with the above. Plan for 2 weeks PO linezolid at discharge (2) HTN (hypertension) Comment: - stable - hold home medication lisinopril and HCTZ (3) Pre-diabetes Comment: - newly diagnosed. Pt would like to use lifestyle changes - follow up with PCP (4) Hypothyroid Comment: - last TSH low in DECEMBER - repeat thyroid labs (5) GERD (gastroesophageal reflux disease) Comment: continue PPI (6) Hx of TIA (transient ischemic attack) and stroke Comment: - Possible TIA vs UTI or drug reaction to cipro - December 2018 - ASA 81 mg daily (7) Full code status (8) DVT prophylaxis Comment: - Lovenox Q24/hr Status and Disposition: inpatient for bacteremia requiring IV abx. Home when medically stable.
--- NOTE | 2019-01-21 10:29 | ECHO ---
*[facility]* [place] [address] Fax #: [phone] Transthoracic Echocardiogram Patient: Mikael, Height: 63 in / 160 Frank Wolfe cm : 1940 Weight: 162.7 lb / Study Date: 01/21/2019 73.9 kg Age: 78 BP: 136 / 55 Gender: F BMI/BSA: 28.9 kg/m^2 HR: 54 bpm / 1.77 m^2 *Doll Wig Hackler: * [facility]yn [facility] *Referring Physician: * Elza Barnes *Reading Physician: * Evan Eugene MD Indications: Bacteremia. History: Risk factors: Hypertension. Diabetes mellitus. Conclusions Summary: 1. Left ventricle: The cavity size is normal. Wall thickness is mildly increased. Systolic function is normal. The estimated ejection fraction is 55-60%. There is no consistent Doppler evidence of clinically significant diastolic dysfunction. 2. Mitral valve: There is mild regurgitation. 3. Aortic valve: There is no evidence of stenosis. There is trivial regurgitation. 4. Pulmonic valve: There is no significant regurgitation. 5. Pulmonary arteries: The peak pressure during systole by Doppler is 29.0 mm Hg. 6. Compared to study of 12/18/18, there is little change Study data: Transthoracic echocardiogram. Procedure: Transthoracic echocardiography was performed. Image quality was good. Complete 2D, spectral Doppler, and color flow Doppler. Location: Bedside. Patient status: Inpatient. Patient room number: 407. Rhythm: Bradycardia. Findings Left ventricle: The cavity size is normal. Wall thickness is mildly increased. Systolic function is normal. The estimated ejection fraction is 55-60%. Wall motion is normal; there are no regional wall motion abnormalities. There is no consistent Doppler evidence of clinically significant diastolic dysfunction. Right ventricle: The cavity size is normal. Systolic function is normal. Systolic pressure is within the normal range. Ventricular septum: The outflow septum has a sigmoid appearance. Left atrium: The atrium is normal in size. Right atrium: The atrium is mildly dilated. Mitral valve: The leaflets are mildly thickened. There is no evidence of a vegetation. There is no evidence of stenosis. There is mild regurgitation. Aortic valve: The valve is trileaflet. The leaflets are normal thickness. There is no evidence of a vegetation. There is no evidence of stenosis. There is trivial regurgitation. Tricuspid valve: The leaflets are normal thickness. There is no evidence of a vegetation. There is no evidence of stenosis. There is mild regurgitation. Pulmonic valve: The leaflets are normal thickness. There is no evidence of a vegetation. There is no evidence of stenosis. There is no significant regurgitation. Aorta: Aortic arch: The aortic arch is appears normal. The aortic root is not dilated. Pericardium: There is no significant pericardial effusion. Pulmonary arteries: The main pulmonary artery is normal-sized. Systolic pressure is within the normal range. Systemic veins: Inferior vena cava: The vessel is dilated. The respirophasic diameter changes are in the normal range (>= 50%). Measurements Left ventricle Value 12/18/2018 Ref Mitral valve Value 12/18/2018 Ref STEPHAN, LAX 4.4 cm 4.3 3.8 Peak E 0.75 m/sec 0.64 ----- - Peak A 0.86 m/sec 1.05 ----- 5.2 Decel time 145 ms 331 ----- ESD, LAX 2.6 cm 2.6 2.2 Peak grad, D 2.2 mm Hg ----- - Peak E/A 0.9 0.6 ----- 3.5 ratio FS, LAX 42 % 40 27 - 45 Pulmonic valve Value 12/18/2018 Ref PW, ED, LAX (H) 1.0 cm 1.1 0.6 Peak v, S 0.48 m/sec 0.75 ----- - Peak grad, S 1.0 mm Hg 2.0 ----- 0.9 EF 73 % 70 54 - Tricuspid valve Value 12/18/2018 Ref 74 TR peak v 2.6 m/sec 2.8 <=2 .8 E', lat (L) 5.4 cm/sec 6.6 >=10 Peak RV-RA 27 mm Hg 31 ----- erum, TDI .0 grad, S E/e', lat 14 10 ---- erum, TDI Aortic root Value 12/18/2018 Ref E', med (L) 5.7 cm/sec 5.5 >=7. Root diam 3.2 cm 2.5 <4.0 erum, TDI 0 E/e', med 13 12 ---- Ascending aorta Value 12/18/2018 R ef erum, TDI AAo AP diam, 2.9 cm 3.1 ----- E', avg, 5.6 cm/sec 6.1 ---- S TDI E/e', avg, 13 11 <=14 Aortic arch Value 9 Ref TDI Arch diam 2.5 cm ----- LVOT Value 12/18/2018 Ref Decending aorta Value 12/18/2018 Ref Peak jerry, S 0.85 m/sec 0.95 ---- Sujata peak jerry 0.54 m/sec 0.56 ----- Mean grad, 1 mm Hg 2 ---- S Pulmonary artery Value 12/18/2018 Ref Pressure, S 29.0 mm Hg ----- Ventricular septum Value 12/18/2018 Ref IVS, ED (H) 1.5 cm 1.2 0.6 Inferior vena cava Value 12/18/2018 Ref - Diam 2.4 cm ----- 0.9 Pulmonary veins Value 12/18/2018 Ref Right ventricle Value 12/18/2018 Ref Peak v, S 0.79 m/sec ----- STEPHAN, LAX 3.0 cm 2.8 ---- Peak v, D 0.37 m/sec ----- STEPHAN minor 2.7 cm 2.7 1.9 Peak S/D 2.1 ----- ax, A4C mid - ratio 3.5 A rev 100 ms ----- Pressure, S 30 mm Hg ---- duration Left atrium Value 12/18/2018 Ref AP dim, ES 3.40 cm 3.00 2.70 - 3.80 ML dim, A4C 4.1 cm 4.6 ---- SI dim, A4C 4.6 cm 4.8 ---- Vol/bsa, 27 ml/m^2 24 16 - ES, A/L 34 Right atrium Value 12/18/2018 Ref SI dim, ES 4.9 cm 4.7 3.4 - 5.3 ML dim, ES, (H) 4.6 cm 4.2 2.6 A4C - 4.4 Estimated 3 mm Hg ---- RAP Aortic valve Value 12/18/2018 Ref Erum diam, 2.1 cm 2.0 ---- ED Peak v, S 1.26 m/sec 1.14 ---- VTI, S 26.6 cm 29.2 ---- Mean grad, 3.0 mm Hg 3.0 ---- S Peak grad, 6.0 mm Hg 5.0 ---- S Legend: (L) and (H) emily values outside specified reference range. Prepared and electronically signed by Evan Eugene MD 01/21/2019 10:29
[2019-01-21] MEDS: Linezolid 600 MG IVPREMIX(*) 600 MG/300 ML BAG IVPB SCH (11:15)
[2019-01-21] MEDS ORDERED: NS 0.9% 1000 ML** 1,000 ML IV SCH (12:45)
--- NOTE | 2019-01-21 13:53 | CONS ---
CONSULTATION REPORT: DATE OF CONSULT: 01/21/19 PRIMARY CARE PROVIDER: Dr. Livier Duffy PROVIDER REQUESTING CONSULTATION: Elza Medrano NP CONSULTING SERVICE: Infectious Disease. PROVIDER: Nguyen Khalil NP ATTENDING PROVIDER: Dr. Mike Fisher.* (DICTATED BY NGUYEN KHALIL NP) REASON FOR CONSULT: Pyelonephritis and enterococcus bacteremia. IMPRESSION: 1. Enterococcus faecalis, left-sided pyelonephritis with bacteremia: 3/4 of the initial blood culture were positive for Enterococcus. Urine culture with greater than 100,000 enterococcus colony count. She armand continued to have intermittent fevers, last fever was 01/20/19 at 101.2, the day prior she had a temperature max of 103.3. She continues to have leukocytosis, but this is trending down. She has no prosthetic materials such as prosthetic joints or pacemaker. She is noted to have left-sided hydronephrosis seen on renal ultrasound and abdominal CT. No pyelonephritic stranding noted. 2. Prediabetes mellitus: Hemoglobin A1c of 6. 3. History of nephrolithiasis. PLAN: Recommend continuing linezolid for now. She can have a few days of IV and then can be transitioned to oral antibiotics for discharge to complete a 2- week course of antibiotics. Repeat blood cultures are pending at this time. We will follow to see that she has cleared her blood cultures. Recommend discussing the case with Urology as she is noted to have hydronephrosis. HISTORY OF PRESENT ILLNESS: Ms. Youssef is a 78-year-old female with past medical history significant for hypertension, hypothyroidism, GERD, migraines, frequent urinary tract infections, who states that on around 01/18/19, she developed severe back pain with nausea, fevers, and chills. She also reported having back pain the day prior. She states at the end of December, she was treated with Cipro for a urinary tract infection and she had a reaction to the Cipro causing either a migraine or TIA. She was hospitalized at that time. Two weeks ago, she reports being seen in the emergency room and diagnosed with a kidney stone. She received ceftriaxone and Toradol, had a 2 mm stone that she passed on her own at home. She has not followed up with Urology, but states she has a followup appointment with [facility] in approximately 1 week. She was feeling as though somebody had punched her in the back. She was taking ibuprofen with no relief. She noted that she had a fever of 102 degrees Fahrenheit. She presented to the emergency room for further evaluation. She presented to the hospital due to her previously mentioned symptoms. While in the emergency room, she had IV fluids started on ceftriaxone. She had lab work and a urinalysis. She is noted to have elevated white blood cell count. Urinalysis with 2+ blood, 1+ bacteria. Negative for nitrites. During her stay in the emergency room, she had a temperature max of 103.3 and the hospitalists were consulted for admission. While in the hospital she has had an abdomen and pelvis CT scan on 01/19/19 showing left hydronephrosis without appreciable nephrolithiasis. No perinephric stranding or fluid collection. Additionally, she had a transthoracic echocardiogram showing no vegetation on the valve. She had a renal ultrasound on 01/20/19 showing left hydronephrosis similar to the previous CT from admission. She currently denies any fevers, chills. She states that she last had rigors overnight the night before last. She reports muscle pain when she has had the chills. She denies any rash. She reports constipation at baseline, but states this has improved since being started on magnesium oxide outpatient, urinary urgency and some frequency. Denies dysuria, or any recent travel. She was previously reporting nausea that had resolved yesterday. She reports upper abdominal cramping while the antibiotics are infusing. PAST MEDICAL HISTORY: 1. Hypertension. 2. Hypothyroidism. 3. GERD. 4. Migraines. 5. Nephrolithiasis. 6. TIA. 7. Frequent urinary tract infections. PAST SURGICAL HISTORY: 1. Status post appendectomy. 2. Status post hysterectomy. 3. Status post carpal tunnel release. 4. Status post bilateral cataract extractions. 5. Status post tonsillectomy. MEDICATIONS: Home medications include: 1. Vitamin D 1 tablet by mouth daily. 2. Lisinopril/hydrochlorothiazide 20/12.5 mg one tablet by mouth daily. 3. Multivitamin 1 tablet by mouth daily. 4. Aspirin 81 mg by mouth daily. 5. Xanax 0.25 mg by mouth daily at bedtime as needed for anxiety. 6. Zofran 4 mg by mouth every 6 hours as needed for nausea. 7. Levothyroxine 88 mcg by mouth daily. 8. Aneta 5/325 one tablet by mouth every 6 hours as needed for pain. 9. Fluticasone nasal spray 50 mcg 1 spray to both nares daily as needed for allergy symptoms. 10. Nexium 20 mg by mouth daily. Hospital Medications: 1. Acetaminophen 650 mg p.o. or p.r. every 4 hours as needed for fever or pain. 2. Xanax 0.25 mg by mouth at bedtime as needed for anxiety. 3. Aspirin 81 mg by mouth daily. 4. Lovenox 40 mg subcutaneous every 24 hours. 5. Fluticasone 1 spray to both nares daily as needed for allergy symptoms. 6. Toradol 30 mg IV every 6 hours as needed for pain. 7. Levothyroxine 88 mcg by mouth daily. 8. Linezolid 600 mg IV every 12 hours. 9. Morphine sulfate 2 mg IV every 4 hours as needed for pain. 10. Multivitamin 1 tablet by mouth daily. 11. Zofran 4 mg IV every 6 hours as needed for nausea. 12. Protonix 40 mg by mouth daily. 13. Potassium chloride 20 mEq IV every 2 hours for 2 doses. 14. Compazine 5 mg IV every 6 hours as needed for nausea. 15. Sodium chloride 100 mL/h. 16. Tramadol 50 mg by mouth every 6 hours as needed for pain. ALLERGIES: ACETAZOLAMIDE, CELEBREX, PENICILLIN unknown, VANCOMYCIN causes a rash, NITROFURANTOIN causes GI upset, and OXYCODONE. FAMILY HISTORY: Father with history of ID. No family history of diabetes. Father with a history of bladder and prostate cancer. Mother with a history of skin cancer. Son passed from malignant melanoma. Second son passed from esophageal cancer. SOCIAL HISTORY: Denies tobacco, alcohol, or recreational drug use. REVIEW OF SYSTEMS: I performed a 10-point review of systems, all the pertinent positives and negative as mentioned in the history of present illness. The remaining review of systems is negative. PHYSICAL EXAM: Vital Signs: Temperature 98.4, heart rate 66, respiratory rate 16, O2 sat 97% on room air, blood pressure 127/57. General Appearance: Alert, pleasant, appears to be in no acute distress. Head: Normocephalic and atraumatic. ENT: Pupils are equal and reactive to light. Extraocular movements are intact. Moist mucous membranes. No thrush. Neck: Supple. No lymphadenopathy. Neurological: Cranial nerves II through XII are grossly intact. She is alert and oriented x4. Cardiovascular: Heart rate and rhythm are regular. No murmurs, rubs, or gallops heard. Respiratory: No accessory muscle use. Lungs are clear to auscultation bilateral. Abdomen: Soft, nontender, and nondistended. Bowel sounds present x4. Mild left-sided CVA tenderness. Extremities: No lower extremity edema. Able to move all joints. No edema, erythema to any joints. No tenderness with palpation of the neck or back. Psychological: Calm and cooperative. Skin: No rashes or abnormalities seen. DIAGNOSTIC STUDIES/LAB DATA: Sodium 137, potassium 3.4, chloride 106, CO2 21, BUN 21, creatinine 0.82, glucose 107. White blood cell count 15.6, hemoglobin 11.8, hematocrit 34, platelet count 151. CRP was 14.55 on 01/19/19 and was 190.21 on 01/20/19. Influenza A and B negative. Blood cultures positive 3/4 bottles for Enterococcus faecalis. Urine culture positive for Enterococcus faecalis greater than 100,000. Please see impression and recommendations outlined above. Thank you for asking us to see Ms. Youssef in consultation. Recommendations had been discussed with Elza Medrano NP. The case has been discussed with my attending Dr. Mike Fisher MD who agrees with the plan of care. Reviewed by NGUYEN KHALIL, CHUCK-Alejandro 01/24/19 1535 [id number]/[facility] #: [id number] EMILIA
[2019-01-21] MEDS: Enoxaparin(*) 40 MG/0.4 ML SYR SUBCUT SCH (15:42)
[2019-01-22] MEDS: Ketorolac INJ* 30 MG/ML 1 ML VIAL IV PUSH PRN (06:01)
[2019-01-22] MEDS: Levothyroxine TAB* 88 MCG TAB PO SCH (06:03)
[2019-01-22] MEDS: Linezolid 600 MG IVPREMIX(*) 600 MG/300 ML BAG IVPB SCH ×3 (06:04→23:11)
[2019-01-22 06:16] LABS: ABS Eosinophils 0.3 10^3/ul (0-0.6); ABS Lymphocytes 0.9 10^3/ul (1.0-4.8); ABS Monocytes 0.7 10^3/ul (0-0.8); ABS Neutrophils 8.5 10^3/ul (1.5-7.7); Eosinophil % 3.1 %; Hematocrit 34 % (35-47); Hemoglobin 11.6 g/dL (12.0-16.0); Lymphocyte % 8.7 %; Mean Corpuscular HGB Conc 34 g/dL (31-36); Mean Corpuscular Hemoglobin 32 pg (27-31); Mean Corpuscular Volume 93 fL (80-97); Mean Platelet Volume 8.7 fL (7.4-10.4); Platelet Count 176 10^3/uL (150-450); Red Blood Count 3.66 10^6 /uL (3.70-4.87); Red Cell Distribution Width 13 % (10-15); White Blood Count 10.4 10^3/uL (3.5-10.8)
[2019-01-22 06:31] LABS: Albumin/Globulin Ratio 1.2 (1-3); BUN/Creatinine Ratio 20.8 (8-20); Calcium 8.2 mg/dL (8.6-10.3); EGFR African American 94.5 (>60); EGFR Non-African American 78.1 (>60); Globulin 2.6 g/dL (2-4); Potassium 3.6 mmol/L (3.5-5.0); Total Bilirubin 0.6 mg/dL (0.2-1.0); Total Protein 5.6 g/dL (6.4-8.9)
[2019-01-22] MEDS: Pantoprazole TAB * 40 MG TAB PO SCH (09:58)
[2019-01-22] MEDS: Aspirin EC TAB* 81 MG TAB.EC PO SCH (09:58)
[2019-01-22] MEDS: Multivitamins/Minerals TAB PO SCH (09:59)
--- NOTE | 2019-01-22 14:50 | PN ---
Progress Note - Progress Note Date of Service: 01/22/19 SOAP: Subjective: CC: bacteremia HPI: 78 year old woman with left flank pain, fever, recently passed a kidney stone here with Enterococcal bacteremia. Sweats yesterday otherwise feels back to her usual self. No rash or diarrhea. Objective: Vital Signs Temp 36.0 C 01/22/19 11:22 Pulse 70 01/22/19 11:22 Resp 16 01/22/19 11:22 BP 156/77 01/22/19 11:22 Pulse Ox 98 01/22/19 11:22 Intake & Output 01/21/19 01/22/19 01/22/19 18:59 06:59 18:59 Intake Total 1701 785 300 Output Total 0 Balance 1701 785 300 Intake: IV Fluids 721 305 300 ABX - LINEZOLID 305 300 NS 721 IVPB 500 ABX - LINEZOLID 300 KCl 200 Oral 480 480 Output: Urine 0 Other: Estimated Void Medium Medium Date of Last Bowel 01/21/19 unknown Movement # Bowel Movements 1 0 # Voids 1 0 3 Gen:awake, no distress HEENT: no thrush Heart:RRR no murmur Lungs:CTA BL Abd:+BS NTND soft Skin: no rash MSK: no flank tenderness Laboratory Results - last 24 hr 01/22/19 01/22/19 05:39 05:39 WBC 10.4 RBC 3.66 L Hgb 11.6 L Hct 34 L MCV 93 MCH 32 H MCHC 34 RDW 13 Plt Count 176 MPV 8.7 Neut % (Auto) 81.6 Lymph % (Auto) 8.7 [place] % (Auto) 6.4 Eos % (Auto) 3.1 Baso % (Auto) 0.2 Absolute Neuts (auto) 8.5 H Absolute Lymphs (auto) 0.9 L Absolute Monos (auto) 0.7 Absolute Eos (auto) 0.3 Absolute Basos (auto) 0.0 Absolute Nucleated RBC 0.0 Nucleated RBC % 0.0 Sodium 135 Potassium 3.6 Chloride 106 Carbon Dioxide 22 Anion Gap 7 BUN 15 Creatinine 0.72 Est GFR ( Amer) 94.5 Est GFR (Non-Af Amer) 78.1 BUN/Creatinine Ratio 20.8 H Glucose 89 Calcium 8.2 L Total Bilirubin 0.60 AST 18 ALT 12 Alkaline Phosphatase 90 Total Protein 5.6 L Albumin 3.0 L Globulin 2.6 Albumin/Globulin Ratio 1.2 Microbiology 01/20/19 13:30 Aerobic Blood Culture - Preliminary Blood Venous No Growth Day 2 Anaerobic Blood Culture - Preliminary No Growth Day 2 01/20/19 13:23 Aerobic Blood Culture - Preliminary Blood Venous No Growth Day 2 Anaerobic Blood Culture - Preliminary No Growth Day 2 01/20/19 13:15 Aerobic Blood Culture - Preliminary Blood Venous No Growth Day 2 Anaerobic Blood Culture - Preliminary No Growth Day 2 01/19/19 07:39 Aerobic Blood Culture - Preliminary Blood Venous No Growth Day 3 Anaerobic Blood Culture - Final Enterococcus Faecalis Assessment: 1. Enterococcus bacteremia, resolved, due to UTI 2. nephrolithiasis, recently passed stone, with left hydronephrosis on CT 3. recurrent UTI 4. PCN and vanco allergy Plan: 1. continue linezolid, day 3/14, can change to 600 mg po twice daily. Has urology follow up planned at [place].
--- NOTE | 2019-01-22 14:53 | PN ---
Subjective Date of Service: 01/22/19 Interval History: Patient reports she feels "much better" today. Reports she did have an episode of feeling "flushed" yesterday at which time she had the aide take her temp and it was 99.1, therefore, she requested Tylenol to prevent a fever. She reports she continues to have intermittent left flank pain, but it is improved from previously. Denies urinary symptoms, chills, sob, cp, abd pain, nausea, vomiting. Objective Active Medications: Acetaminophen (Tylenol Tab*) 650 mg PO Q4H PRN PRN Reason: FEVER/PAIN Last Admin: 01/21/19 18:15 Dose: 650 mg Acetaminophen (Tylenol Supp*) 650 mg OR Q4H PRN PRN Reason: FEVER/PAIN Last Admin: 01/20/19 17:08 Dose: 650 mg Alprazolam (Xanax Tab*) 0.25 mg PO BEDTIME PRN PRN Reason: ANXIETY Aspirin (Aspirin Ec Tab*) 81 mg PO DAILY [facility] Last Admin: 01/22/19 09:58 Dose: 81 mg Enoxaparin Sodium (Lovenox(*)) 40 mg SUBCUT Q24H [facility] Last Admin: 01/21/19 15:42 Dose: 40 mg Fluticasone Propionate (Flonase Nasal Queen 50mcg*) 1 spray BOTH NARES DAILY PRN PRN Reason: Allergy Symptoms Linezolid (Zyvox 600 Mg Ivpremix(*)) 600 mg in 300 mls @ 300 mls/hr IVPB Q12H [facility] Last Admin: 01/22/19 11:49 Dose: 300 mls/hr Ketorolac Tromethamine (Toradol Inj*) 30 mg IV PUSH Q6H PRN PRN Reason: PAIN Last Admin: 01/22/19 06:01 Dose: 30 mg Levothyroxine Sodium (Synthroid Tab*) 88 mcg PO QAM@0600 [facility] Last Admin: 01/22/19 06:03 Dose: 88 mcg Morphine Sulfate (Morphine Inj (Syringe))*) 2 mg IV Q4H PRN PRN Reason: PAIN - BREAKTHROUGH Multivitamins/Minerals (Theragran/Minerals Tab*) 1 tab PO DAILY [facility] Last Admin: 01/22/19 09:59 Dose: 1 tab Ondansetron HCl (Zofran Inj*) 4 mg IV Q6H PRN PRN Reason: NAUSEA/VOMITING Last Admin: 01/21/19 11:10 Dose: 4 mg Ondansetron HCl (Zofran Inj*) 4 mg IV ONCE PRN PRN Reason: NAUSEA Last Admin: 01/20/19 19:22 Dose: 4 mg Pantoprazole Sodium (Protonix Tab*) 40 mg PO DAILY [facility]; Protocol Last Admin: 01/22/19 09:58 Dose: 40 mg Prochlorperazine Edisylate (Compazine Inj*) 5 mg IV Q6H PRN PRN Reason: NAUSEA/VOMITING Last Admin: 01/20/19 15:04 Dose: 5 mg Tramadol HCl (Ultram*) 50 mg PO Q6H PRN PRN Reason: PAIN - BREAKTHROUGH Vital Signs - 8 hr 01/22/19 01/22/19 01/22/19 08:00 08:41 10:00 Temperature 97.9 F Pulse Rate 64 Respiratory 16 16 Rate Blood Pressure 145/70 (mmHg) O2 Sat by Pulse 98 98 Oximetry 01/22/19 11:22 Temperature 96.8 F Pulse Rate 70 Respiratory 16 Rate Blood Pressure 156/77 (mmHg) O2 Sat by Pulse 98 Oximetry Oxygen Devices in Use Now: None Appearance: Comfortable, NAD Eyes: No Scleral Icterus Ears/Nose/Mouth/Throat: Clear Oropharnyx, Mucous Membranes Moist Neck: NL Appearance and Movements; NL JVP Respiratory: Symmetrical Chest Expansion and Respiratory Effort, Clear to Auscultation Cardiovascular: NL Sounds; No Murmurs; No JVD, RRR, No Edema Abdominal: NL Sounds; No Tenderness; No Distention, - - Mild left CVA tenderness Lymphatic: No Cervical Adenopathy Extremities: No Clubbing, Cyanosis Skin: No Rash or Ulcers Neurological: Alert and Oriented x 3 Nutrition: Taking PO's Result Diagrams: 01/22/19 05:39 01/22/19 05:39 Additional Lab and Data: Laboratory Results - last 24 hr 01/22/19 01/22/19 05:39 05:39 WBC 10.4 RBC 3.66 L Hgb 11.6 L Hct 34 L MCV 93 MCH 32 H MCHC 34 RDW 13 Plt Count 176 MPV 8.7 Neut % (Auto) 81.6 Lymph % (Auto) 8.7 [place] % (Auto) 6.4 Eos % (Auto) 3.1 Baso % (Auto) 0.2 Absolute Neuts (auto) 8.5 H Absolute Lymphs (auto) 0.9 L Absolute Monos (auto) 0.7 Absolute Eos (auto) 0.3 Absolute Basos (auto) 0.0 Absolute Nucleated RBC 0.0 Nucleated RBC % 0.0 Sodium 135 Potassium 3.6 Chloride 106 Carbon Dioxide 22 Anion Gap 7 BUN 15 Creatinine 0.72 Est GFR ( Amer) 94.5 Est GFR (Non-Af Amer) 78.1 BUN/Creatinine Ratio 20.8 H Glucose 89 Calcium 8.2 L Total Bilirubin 0.60 AST 18 ALT 12 Alkaline Phosphatase 90 Total Protein 5.6 L Albumin 3.0 L Globulin 2.6 Albumin/Globulin Ratio 1.2 Microbiology and Other Data: Microbiology 01/20/19 13:30 Blood Venous Aerobic Blood Culture - Preliminary No Growth Day 2 01/20/19 13:30 Blood Venous Anaerobic Blood Culture - Preliminary No Growth Day 2 01/20/19 13:23 Blood Venous Aerobic Blood Culture - Preliminary No Growth Day 2 01/20/19 13:23 Blood Venous Anaerobic Blood Culture - Preliminary No Growth Day 2 01/20/19 13:15 Blood Venous Aerobic Blood Culture - Preliminary No Growth Day 2 01/20/19 13:15 Blood Venous Anaerobic Blood Culture - Preliminary No Growth Day 2 01/19/19 07:39 Blood Venous Aerobic Blood Culture - Preliminary No Growth Day 3 01/19/19 07:39 Blood Venous Anaerobic Blood Culture - Final Enterococcus Faecalis 01/19/19 07:44 Blood Venous Aerobic Blood Culture - Final Enterococcus Faecalis 01/19/19 07:44 Blood Venous Anaerobic Blood Culture - Final Enterococcus Faecalis 01/19/19 09:04 Urine Urine Culture - Final Enterococcus Faecalis Normal Adeline Assess/Plan/Problems-Billing Assessment: Mrs. Youssef is a 78 with a PMH of GERD, Hypothyroid, HTN, Migraines who presented with left flank pain and fever found to enterococcus bacteremia - Patient Problems (1) Bacteremia Comment: - Had episode of feeling flushed yesterday and took tylenol to prevent fever, therefore, will keep for another day of IV abx before transition to PO - Repeat blood cultures of 01/20 have no growth so far - Initial blood cultures revealed enterococcus faecalis 3/4 bottles - source - urine cx growing entercoccus - Pyelonephitis with left sided hydronephrosis noted on CT; renal/bladder ultrasound - showing left hydro, left jet and no obstruction. Urology consulted by previousl provider and they do not recommend anything further at this time. - Patient has been treated with Linezolid while inpatient due to multiple drug allergies. - Appreciate ID consult - agrees with the above. Plan for 2 weeks PO linezolid at discharge at 600 mg po BID (2) Pre-diabetes Comment: - Hemoglobin A1c 6.0 - Newly diagnosed as "pre-diabetes". - Patient reports she is interested in lifestyle changes - Follow up with PCP (3) GERD (gastroesophageal reflux disease) Comment: - No symptoms currently - Advancing diet to soft. - Continue PPI (4) HTN (hypertension) Comment: - BP stable - Currently holding home medication lisinopril and HCTZ - Resume when discharged (5) Hypothyroid Comment: - Thyroid labs obtained and reviewed. No adjustments to medication at this time. Would recommend outpatient follow up with PCP (6) Hx of TIA (transient ischemic attack) and stroke Comment: - Continue ASA 81 mg daily - Neuro grossly intact - Hx of possible TIA vs UTI or drug reaction to cipro - December 2018 (7) DVT prophylaxis Comment: - Lovenox Q24/hr (8) Full code status Status and Disposition: inpatient for bacteremia requiring IV abx. Home when medically stable. Attending: Clarence Stanley
[2019-01-22] MEDS: Enoxaparin(*) 40 MG/0.4 ML SYR SUBCUT SCH (15:04)
[2019-01-22] MEDS: Acetaminophen TAB* 325 MG PO PRN (21:58)
[2019-01-23] MEDS: Levothyroxine TAB* 88 MCG TAB PO SCH (06:22)
[2019-01-23] MEDS: Pantoprazole TAB * 40 MG TAB PO SCH (08:56)
[2019-01-23] MEDS: Multivitamins/Minerals TAB PO SCH (08:56)
[2019-01-23] MEDS: Aspirin EC TAB* 81 MG TAB.EC PO SCH (08:56)
[2019-01-23] MEDS: Linezolid 600 MG IVPREMIX(*) 600 MG/300 ML BAG IVPB SCH (11:27)
[2019-01-23 14:21] VITALS: BP 149/65
--- NOTE | 2019-01-23 16:09 | DS ---
CC: Dr. Duffy; Dr. Mike Fisher * DISCHARGE SUMMARY: DATE OF ADMISSION: 01/19/19 DATE OF DISCHARGE: 01/23/19 PRIMARY CARE PROVIDER: Dr. Duffy. ATTENDING PHYSICIAN: Dr. Stanley * (dictated by Alley Hamilton NP) PRIMARY DIAGNOSES: 1. Bacteremia. 2. Nephrolithiasis. 3. Prediabetes. SECONDARY DIAGNOSES: 1. Gastroesophageal reflux disease. 2. Hypertension. 3. Hypothyroid. 4. History of transient ischemic attack. CONSULTATION WHILE IN THE HOSPITAL: Dr. Mike Fisher. PROCEDURES WHILE IN THE HOSPITAL: No procedures. STUDIES WHILE IN THE HOSPITAL: 1. Abdominal x-ray: Impression: Large amount of stool throughout the colon. The distal ureteral stone noted on previous CT is not well visualized on the current film examination. 2. Abdominal/Pelvic CT: Impression: Left hydronephrosis without appreciable nephrolithiasis. No perinephritic stranding or fluid collection. Fatty infiltrates of the liver. Small amount of gas density within the bladder. 3. Chest x-ray: Impression: No active cardiopulmonary disease. 4. EKG: Impression: Normal sinus rhythm. 5. Transthoracic echo: Impression: Left ventricle: The cavity size is normal. Wall thickness is mildly increased. Systolic function is normal. The estimated ejection fraction is 55% to 60%. There is no consistent Doppler evidence of clinically significant diastolic dysfunction. Mitral valve: There is mild regurgitation. Aortic valve: There is no evidence of stenosis. There is trivial regurgitation. Pulmonic valve: There is no significant regurgitation. Pulmonary arteries: The peak pressure during by Doppler is 29.0 . Compared to study of 12/18/18, there is little change. 6. Renal ultrasound: Impression: Left hydronephrosis similar to previous CT examination. DISCHARGE HOME MEDICATIONS: Continued Home Medications: 1. Vitamin B 1 tablet daily. 2. Zestoretic 20/12.5 mg, she takes half a tab twice a day. 3. Multivitamin 1 tablet. 4. Aspirin 81 mg daily. 5. Xanax 0.25 mg at bedtime p.r.n. 6. Zofran 4 mg p.o. q.6 hours p.r.n. 7. Levothyroxine 88 mcg p.o. q.a.m. 8. Dodson 5/325 one tablet q.6 hours p.r.n. 9. Fluticasone one spray to both nares daily p.r.n. 10. Esomeprazole 20 mg daily. [place] Medications: 1. Linezolid 600 mg p.o. b.i.d. x11 more days to equal 14 day course. 2. Tylenol 650 mg p.o. q.4 hours p.r.n. Discontinued Home Medications: No home medications discontinued. Changed Home Medications: No home medications were changed. HISTORY OF PRESENT ILLNESS/HOSPITAL COURSE: Ms. Youssef is a 78-year-old female with past medical history significant for hypertension, hypothyroidism, GERD, migraines, nephrolithiasis; who presented to the emergency room on , with complaints of mid-to-low back pain, fever, chills. Please see history and physical dictated by Loli Lau NP for complete summary of events leading up to hospitalization, but in short, the patient presented with above mentioned symptoms. She also reported urinary frequency, urinary incontinence, and previous diagnosis of a kidney stone that was passed on 01/09/19. While in the emergency department, the patient was started on antibiotics. The patient was noted to have elevated white count and she was febrile. Given these findings, the hospitalists were asked to evaluate for admission. During this admission, the patient had imaging as mentioned above. In addition, the patient 's initial urine was positive for blood, rbc, bacteria and her urine culture grew enterococcus faecalis. In addition, her hospitalization was further complicated as her blood cultures that were obtained in the emergency room grew the same bacteria enterococcus faecalis in 3 of 4 bottles. This patient was diagnosed with bacteremia with suspected cause being nephrolithiasis since she reported recently passed stone and a CT noted left hydronephrosis. Dr. Mike Fisher from Infectious Disease was consulted and recommended linezolid IV while inpatient given patient's PENICILLIN and VANCOMYCIN allergy. The patient has received linezolid while inpatient. The patient had repeat blood cultures which has had no growth. The patient's symptoms have improved as she is reporting less left-sided flank pain and she has been afebrile since 01/20/19. The patient is stable for discharge home. Vital Signs: Temp 98.0, HR 59, RR 18, O2 saturation is 98% on room air, BP 169/ 68. REVIEW OF SYSTEMS: The patient reports mild left flank pain, but reports it is much improved from previously. The patient endorses mild urinary urgency, but once again much improved from previously. The patient denies fever, chills, nausea, vomiting, diarrhea, chest pain, shortness of breath. A 14-point review of systems was completed and all others were negative. PHYSICAL EXAM: General: Ms. Youssef is a 78-year-old female who is sitting in bed. Appears to be in no acute distress. Appears stated age. HEENT: EOMs intact. PERRLA. Oral mucosa is moist without lesion. Posterior pharynx is clear. Neck: Supple. No lymphadenopathy. Cardiac: S1, S2 present. No murmurs, rubs, or gallops. Regular rate and rhythm. Respiratory: Lungs are clear to auscultation. No wheezes, rhonchi, or rubs. Good aeration. Abdomen: Soft and nontender. Bowel sounds are normoactive. The patient reports slight left CVA tenderness. Extremities: No edema. Pedal pulses are 2+ bilaterally. No clubbing or cyanosis. Musculoskeletal: No pain or deformities. Skin: Grossly intact. Neuro: Neuro exam is grossly intact. No focal deficits or weakness noted. DIAGNOSTIC STUDIES/LABORATORY DATA: WBC 10.4, hemoglobin 11.6, hematocrit 34, platelets 176,000. Sodium 135, potassium 3.6, chloride 106, carbon dioxide 26, BUN 15, creatinine 0.72. TSH 0.59. Free T4 of 1.12, free T3 of 1.90. Imaging: As above. DISCHARGE PLAN/FOLLOWUP: 1. Bacteremia: As mentioned above, the patient was diagnosed with bacteremia and has been followed by Dr. Mike Fisher. The patient's repeat blood cultures have had no growth. The patient should continue linezolid to complete a 14-day course. Today is day 4 of 14. The patient has been sent a prescription of linezolid 600 mg p.o. twice daily to her pharmacy. 2. Nephrolithiasis: As mentioned above, we suspect the bacteremia was secondary to nephrolithiasis, recently passed stones and left hydronephrosis as on CT. The patient reports she has a followup planned with Urology at [facility] next Monday. 3. Prediabetes: The patient reports she was recently diagnosed with prediabetes. The patient's hemoglobin A1c is 6.0. The patient is instructed lifestyle changes. The patient is to follow up with her primary care provider. 4. Gastroesophageal reflux disorder: The patient has no symptoms. The patient should continue her PPI. The patient is tolerating a soft diet. 5. Hypertension: The patient's blood pressure has been stable. She can resume her lisinopril and HCTZ at home which we have been holding while she is in the hospital. 6. Hypothyroidism: As mentioned above, the patient's thyroid labs were obtained. No adjustments were made to her medications at this time. I have recommended to follow up with her primary care provider. 7. History of transient ischemic attack: The patient should continue her aspirin. 8. Followup: The patient should follow up with her primary care in 1 to 3 days. The patient should keep her followup with her urologist at [facility]. The patient does not need to follow up with Dr. Fisher at this time unless she has a recurrence of symptoms. 9. Education: The patient was educated on signs and symptoms of new or worsening condition and when to return to the emergency department. The patient stated understanding. TIME SPENT: Approximately 35 minutes were spent on this discharge, greater than half that time was spent [id number] with the patient discussing discharge plans and instructions. This is a summarized report of a complex medical history and hospital stay. For further details, please see entire medical record. This plan has been discussed with my attending, Dr. Stanley, who is in agreement with my plan of care. ALLEY HAMILTON, WILMER [id number]/[facility] #: [id number] EMILIA
== END 2019-01-23 14:00 | disposition home or self-care (01) | DRG 690 ==
LOC: ED 06:08 → MED 14:22 → OBSVTOIN 01-20 12:04 → MED 01-20 17:36
PROVIDERS: ADMIT Internal Medicine; ATTEND Internal Medicine
DX: N13.6 Pyonephrosis (principal); R78.81 Bacteremia; B95.2 Enterococcus as the cause of diseases classified elsewhere; N12 Tubulo-interstitial nephritis, not specified as acute or chronic; N39.0 Urinary tract infection, site not specified; I10 Essential (primary) hypertension; E03.9 Hypothyroidism, unspecified; K21.9 Gastro-esophageal reflux disease without esophagitis; M54.5 Low back pain; N20.0 Calculus of kidney; R73.03 Prediabetes; Z86.73 Personal history of transient ischemic attack (TIA), and cerebral infarction without residual deficits; G43.909 Migraine, unspecified, not intractable, without status migrainosus; Z79.82 Long term (current) use of aspirin; Z79.899 Other long term (current) drug therapy; Z88.1 Allergy status to other antibiotic agents; Z88.5 Allergy status to narcotic agent; Z88.0 Allergy status to penicillin; Z88.8 Allergy status to other drugs, medicaments and biological substances; Z82.49 Family history of ischemic heart disease and other diseases of the circulatory system; Z80.52 Family history of malignant neoplasm of bladder; Z80.42 Family history of malignant neoplasm of prostate; Z80.0 Family history of malignant neoplasm of digestive organs; Z80.8 Family history of malignant neoplasm of other organs or systems
CPT/HCPCS: 36415; 71045; 74018; 74177; 76775; 80048; 80053; 81003; 81015; 83036; 83605; 83735; 84439; 84443; 84479; 84481; 84482; 85025; 85610; 85730; 86140; 86376; 86800; 87040; 87077; 87086; 87186; 87205; 93005; 93306; 99284; A9270-GY; G0378; J0692; J0696; J0780; J1650; J1885; J2020; J2270; J2405; J3475; J3480; J3490; Q9967